=== PATIENT | male | born 1965 | race Caucasian/White ===

== ENCOUNTER 2017-09-20 08:51 | Day surgery (SDC) | payer BC, MEDICAID ==
[2017-09-17 13:21] VITALS: BMI 28.1
[~2017-09-20 08:51] MED LIST: LACTATED RINGERS 1,000 ML IV SCH
[2017-09-20 09:44] VITALS: TEMP 98.2
[2017-09-20 09:59] LABS: Glucose,Whole Blood 98 mg/dL (75-99)
[2017-09-20] MEDS ORDERED: LIDOCAINE 1% INJ 10MG/ML (20 ML MDV) ONE (10:14)
[2017-09-20] MEDS ORDERED: PROPOFOL 10 MG/ML 20 ML VIAL IV ONE (10:14)
[2017-09-20 10:41] VITALS: RESP 16
--- NOTE | 2017-09-20 10:48 | P.PCN ---
Date of Procedure: 09/20/17 Procedure(s) Performed: Procedure: Total colonoscopy. Preoperative diagnosis: Screening for neoplasia. Postoperative diagnosis: Mild sigmoid diverticulosis, otherwise, exam reveals no evidence of diverticulitis, polyps or cancer. Preparation: HalfLytely prep. Sedation: Was provided by anesthesia. Brief clinical history: The patient is a 51-year-old male who is scheduled for this evaluation for screening for neoplasia, patient being his risk factor. No family history of colon cancer. At this time, he has no abdominal complaints, bleeding or anemia. Procedure: With the patient on his left lateral decubitus position and after informed consent and adequate sedation, the perianal area was inspected and it did not show any fissures or fistulas. There were no masses felt on digital rectal examination. The Olympus CFQ 160L video colonoscope was then inserted in the rectum in the usual fashion and advanced to the cecum. The mucosa appeared healthy. There were no obvious polyps or tumors seen. There was mild sigmoid diverticulosis noted with no evidence of acute diverticulitis or strictures. I retroflexed the endoscope in the rectum before the endoscope was withdrawn. The patient tolerated the procedure well. Plan: The patient was reassured. He will follow up with you as planned and I recommended repeat exam in 10 years.
[2017-09-20 10:59] VITALS: BP 121/72; PULSE 60
== END 2017-09-20 11:11 | disposition home or self-care (01) ==
LOC: ORWHC2ENDO 08:51
DX: Z12.11 Encounter for screening for malignant neoplasm of colon (principal); K57.30 Diverticulosis of large intestine without perforation or abscess without bleeding; Z79.899 Other long term (current) drug therapy
CPT/HCPCS: J2001; J2704; G0121

== ENCOUNTER → 2018-06-11 | Outpatient (CLI) | payer MEDICAID ==
--- NOTE | 2018-06-11 08:32 | MR ---
EXAMINATION TYPE: MR knee LT wo con DATE OF EXAM: 06/11/2018 8:14 AM COMPARISON: NONE HISTORY: L knee pain TECHNIQUE: Multiplanar, multiecho imaging of the left knee is performed without IV contrast. FINDINGS: There is only a small amount of joint fluid. 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 There is no other significant chondromalacia. There is a tiny radial tear in the mid body of the medial meniscus. Menisci are otherwise intact. Both the anterior and posterior cruciate ligaments are intact. Both the medial and lateral collateral ligament complexes are intact. The iliotibial band inserts nor cali upon Gerdy's tubercle. The popliteus muscle and tendon are intact. Both the quadriceps and patellar tendons are normal. There is no significant swelling in the Hoffa fa t space. IMPRESSION: 1. TINY RADIAL TEAR INVOLVING THE MID BODY OF THE MEDIAL MENISCUS. 2. CHONDROMALACIA DESCRIBED.
== END ==
LOC: RADMRIMAIN 07:44
PROVIDERS: ATTEND Orthopaedic Surgery
DX: M94.262 Chondromalacia, left knee (principal)

== ENCOUNTER 2019-04-09 18:43 | Emergency (ER) | payer MEDICAID ==
[2019-04-09] MEDS ORDERED: KETOROLAC 30 MG/ML 1 ML VIAL IVP STA (19:05)
[2019-04-09] MEDS ORDERED: SODIUM CHLORIDE 0.9% 1,000 ML IV STA (19:05)
--- NOTE | 2019-04-09 19:09 | ED ---
General Adult HPI - General Chief complaint: Abdominal Pain Stated complaint: Abd pain Time Seen by Provider: 04/09/19 18:47 Source: patient, RN notes reviewed Mode of arrival: ambulatory Limitations: no limitations - History of Present Illness Initial comments: 53-year-old male with a past medical history of diverticulitis presents to the emergency department for a chief complaint of abdominal pain. Patient states this started 2 nights ago on Wednesday evening. States it is in the suprapubic and left lower quadrant areas. States the pain as a 4 or 5 out of 10. States walking exacerbates his pain. Denies nausea vomiting or diarrhea. Does state he may be a little more constipated than normal. States he felt like he had a fever last night but did not check his temperature. Patient does have a history of diverticulitis but states that usually his diverticulitis is worse.Patient has no other complaints at this time including shortness of breath, chest pain, nausea or vomiting, headache, or visual changes. - Related Data Home Medications Medication Instructions Recorded Confirmed Sildenafil Citrate [Sildenafil] 20 mg PO DAILY PRN 09/17/17 09/20/17 Previous Rx's Medication Instructions Recorded Ciprofloxacin HCl [Cipro] 500 mg PO Q12H 10 Days #20 tab 04/09/19 metroNIDAZOLE [Flagyl] 500 mg PO TID #30 tab 04/09/19 Allergies Allergy/AdvReac Type Severity Reaction Status Date / Time No Known Allergies Allergy Verified 04/09/19 18:45 Review of Systems ROS Statement: Those systems with pertinent positive or pertinent negative responses have been documented in the HPI. ROS Other: All systems not noted in ROS Statement are negative. Past Medical History Past Medical History: No Reported History Additional Past Medical History / Comment(s): steroid injection Aug 2017 History of Any Multi-Drug Resistant Organisms: MRSA Date of last positivie culture/infection: 04/09/14 MDRO Source:: Left Leg Past Surgical History: Orthopedic Surgery Additional Past Surgical History / Comment(s): knee procedure,wisdom teeth Past Anesthesia/Blood Transfusion Reactions: No Reported Reaction Past Psychological History: No Psychological Hx Reported Smoking Status: Never smoker Past Alcohol Use History: None Reported Past Drug Use History: None Reported - Past Family History Father Family Medical History: No Reported History General Exam Limitations: no limitations General appearance: alert, in no apparent distress Head exam: Present: atraumatic, normocephalic, normal inspection Eye exam: Present: normal appearance, PERRL, EOMI. Absent: scleral icterus, conjunctival injection, periorbital swelling ENT exam: Present: normal exam, mucous membranes moist Neck exam: Present: normal inspection, full ROM. Absent: tenderness, me ningismus, lymphadenopathy Respiratory exam: Present: normal lung sounds bilaterally. Absent: respiratory distress, wheezes, rales, rhonchi, stridor Cardiovascular Exam: Present: regular rate, normal rhythm, normal heart sounds. Absent: systolic murmur, diastolic murmur, rubs, gallop, clicks GI/Abdominal exam: Present: soft, tenderness (Tenderness to the suprapubic and lower left quadrant with mild guarding present.), guarding, normal bowel sounds. Absent: distended, rebound, rigid Neurological exam: Present: alert Psychiatric exam: Present: normal affect, normal mood Course Vital Signs 04/09/19 18:45 Temperature 99.5 F Pulse Rate 95 Respiratory 18 Rate Blood Pressure 148/87 O2 Sat by Pulse 97 Oximetry Medical Decision Making - Medical Decision Making 43-year-old male presents to the emergency department for left lower quadrant pain 2 days. History of diverticulitis. Patient felt hot at home but did not check his temperature. Patient is afebrile here. Vitals are stable. On exam he does have left lower quadrant tenderness with mild guarding. No rebound tenderness. CBC CMP unremarkable. White blood cell count is within normal l imits. CT abdomen and pelvis shows a new fairly moderate uncomplicated acute diverticulitis in the proximal sigmoid colon left upper to mid pelvis. Patient was given a dose of oral antibiotics here in the emergency department. Patient was prescribed Robaxin outpatient. He will follow up with primary care in 1-2 days. He will follow up with his GI doctor as well. He will return if he has any worsening symptoms. - Lab Data Result diagrams: 04/09/19 19:04/09/19 19: Lab Results 04/09/19 04/09/19 04/09/19 Range/Units 19: 19: 19: WBC 8.5 (3.8-10.6) k/uL RBC 4.37 (4.30-5.90) m/uL Hgb 14.5 (13.0-17.5) gm/dL Hct 40.2 (39.0-53.0) % MCV 91.9 (80.0-100.0) fL MCH 33.1 (25.0-35.0) pg MCHC 36.1 (31.0-37.0) g/dL RDW 12.4 (11.5-15.5) % Plt Count 169 (150-450) k/uL Neutrophils % 76 % Lymphocytes % 13 % Monocytes % 6 % Eosinophils % 2 % Basophils % 1 % Neutrophils # 6.4 (1.3-7.7) k/uL Lymphocytes # 1.1 (1.0-4.8) k/uL Monocytes # 0.5 (0-1.0) k/uL Eosinophils # 0.2 (0-0.7) k/uL Basophils # 0.1 (0-0.2) k/uL Sodium 139 (137-145) mmol/L Potassium 3.9 (3.5-5.1) mmol/L Chloride 105 (98-107) mmol/L Carbon Dioxide 25 (22-30) mmol/L Anion Gap 9 mmol/L BUN 18 (9-20) mg/dL Creatinine 0.89 (0.66-1.25) mg/dL Est GFR (CKD-EPI)AfAm >90 (>60 ml/min/1.73 sqM) Est GFR (CKD-EPI)NonAf >90 (>60 ml/min/1.73 sqM) Glucose 116 H (74-99) mg/dL Plasma Lactic Acid Juanjo 0.8 (0.7-2.0) mmol/L Calcium 9.2 (8.4-10.2) mg/dL Total Bilirubin 0.5 (0.2-1.3) mg/dL AST 28 (17-59) U/L ALT 27 (21-72) U/L Alkaline Phosphatase 94 (38-126) U/L Total Protein 7.1 (6.3-8.2) g/dL Albumin 4.1 (3.5-5.0) g/dL Amylase 44 (30-110) U/L Lipase 29 (23-300) U/L Disposition Clinical Impression: Diverticulitis Disposition: HOME SELF-CARE Condition: Good Instructions (If sedation given, give patient instructions): Diverticulitis (ED), Diverticulitis Diet (ED) Additional Instructions: Please follow diverticulitis male plan is given 2. Please take antibiotics as directed. Follow up with GI in 1-2 days. Return to the emergency department give any worsening symptoms. Prescriptions: Ciprofloxacin HCl [Cipro] 500 mg PO Q12H 10 Days #20 tab metroNIDAZOLE [Flagyl] 500 mg PO TID #30 tab Is patient prescribed a controlled substance at d/c from ED?: No Referrals: Luis Jackson MD [Primary Care Provider] - 1-2 days Shade Preciado MD [STAFF PHYSICIAN] - 1-2 days Time of Disposition: 20:25
[2019-04-09 19:33] LABS: Basophils # (A) 0.1 k/uL (0-0.2); Basophils % (A) 1 %; Eosinophils # (A) 0.2 k/uL (0-0.7); Eosinophils % (A) 2 %; HCT 40.2 % (39.0-53.0); HGB 14.5 gm/dL (13.0-17.5); Lymphocytes # (A) 1.1 k/uL (1.0-4.8); Lymphocytes % (A) 13 %; MCH 33.1 pg (25.0-35.0); MCHC 36.1 g/dL (31.0-37.0); MCV 91.9 fL (80.0-100.0); Mean Platelet Volume 6.8; Monocytes # (A) 0.5 k/uL (0-1.0); Monocytes % (A) 6 %; Neutrophils # (A) 6.4 k/uL (1.3-7.7); Neutrophils % (A) 76 %; Platelet Count 169 k/uL (150-450); RBC 4.37 m/uL (4.30-5.90); RDW 12.4 % (11.5-15.5); WBC 8.5 k/uL (3.8-10.6)
[2019-04-09 19:48] LABS: ALT 27 U/L (21-72); AST 28 U/L (17-59); African American GFR (CKD) >90 (>60 ml/min/1.73 sqM); Albumin 4.1 g/dL (3.5-5.0); Alkaline Phosphatase 94 U/L (38-126); Amylase 44 U/L (30-110); Anion Gap 9 mmol/L; Blood Urea Nitrogen 18 mg/dL (9-20); Calcium 9.2 mg/dL (8.4-10.2); Carbon Dioxide 25 mmol/L (22-30); Chloride 105 mmol/L (98-107); Glucose 116 mg/dL (74-99); Potassium 3.9 mmol/L (3.5-5.1); Sodium 139 mmol/L (137-145); Total Bilirubin 0.5 mg/dL (0.2-1.3); Total Protein 7.1 g/dL (6.3-8.2)
--- NOTE | 2019-04-09 19:49 | CT ---
EXAMINATION TYPE: CT abdomen pelvis w con DATE OF EXAM: 04/09/2019 COMPARISON: CT abdomen and pelvis June 23, 2015 HISTORY: LLQ pain X [address] DLP: 1081.3 mGycm, Automated Exposure Control for Dose Reduction was Utilized. CONTRAST: CT scan of the abdomen and pelvis is performed with oral and with IV Contrast, patient injected with 100 mL of Isovue 300. FINDINGS: LUNG BASES: No significant abnormality is appreciated. LIVER/GB: Numerous subcentimeter low dense lesions throughout the liver are too small to further laxmi acterize for presumed benign. PANCREAS: Some mild to moderate fat replaced atrophy of pancreas is redemonstrated most prominent at level of pancreatic head. SPLEEN: No significant abnormality is seen. ADRENALS: No significant abnormality is seen. KIDNEYS: No significant abnormality is seen. BOWEL: Evaluation of bowel slightly suboptimal secondary to lack of enteric contrast. No suspicious s mall or large bowel dilatation. Mild wall thickening involving the left colon. More mild to moderate wall thickening involving the sigmoid colon where there are 2 prominent diverticula and moderate arpita cent ill-defined fluid and fat stranding left upper pelvis axial image 68 consistent with acute diver ticulitis. No adjacent well-formed fluid collection. No free air is seen. PROSTATE/SEMINAL VESICLES: No gross abnormality seen. LYMPH NODES: No greater than 1cm abdominal or pelvic lymph nodes are appreciated. OSSEOUS STRUCTURES: Moderate disc space narrowing lumbosacral junction. OTHER: Small fat-containing left inguinal hernia . IMPRESSION: New fairly moderate uncomplicated acute diverticulitis proximal sigmoid colon left upper to mid pelvis.
[2019-04-09] MEDS ORDERED: LEVOFLOXACIN 750 MG TAB PO STA (20:01)
[2019-04-09] MEDS ORDERED: metroNIDAZOLE 500 MG TAB PO STA (20:01)
[2019-04-09 20:43] VITALS: BP 139/82; PULSE 91; RESP 16; TEMP 98.8
== END 2019-04-09 20:43 | disposition home or self-care (01) ==
LOC: EC 18:43
DX: K57.32 Diverticulitis of large intestine without perforation or abscess without bleeding (principal); Z86.14 Personal history of Methicillin resistant Staphylococcus aureus infection
CPT/HCPCS: 99284; 96374; 96361; 36415; 80053; 82150; 83605; 83690; 85025; 74177; J1885; Q9967

== ENCOUNTER 2019-09-15 18:30 | Emergency (ER) | payer MEDICAID ==
[2019-09-15 18:37] VITALS: TEMP 97.9
--- NOTE | 2019-09-15 19:07 | ED ---
General Adult HPI - General Chief complaint: Recheck/Abnormal Lab/Rx Stated complaint: spitting up blood Time Seen by Provider: 09/15/19 18:48 Source: patient, RN notes reviewed, old records reviewed Mode of arrival: ambulatory Limitations: no limitations - History of Present Illness Initial comments: 53-year-old male patient past history significant for diverticulitis presents to ED for chief complaint of spitting up blood. Patient reports that for the last 2 weeks he has been experiencing daily fevers and chills. He reports that he was having some mild upper respiratory symptoms including dry cough. This has since resolved. He also reports that approximately 4 days ago he had right parasternal chest pain with coughing which is also resolved. He was seen by his primary care provider on Wednesday where he had laboratory investigations drawn and today was put on ciprofloxacin and Flagyl for possible diverticulitis. Patient denies any abdominal pain over does report that he has been having some bloating. States that 3 times today he tasted blood and spit out a small amount of blood. This was not while coughing. Denies any prior liver disease or any coagulopathies. Denies any recent travel, history of DVT, lower extremity pain, active cancer, exogenous hormones. Denies any rashes. Systemic: Pt denies fatigue, fever/chills, rash. Pt denies weakness, night sweats, weight loss. Neuro: Pt denies headache, visual disturbances, syncope or pre-syncope. HEENT: Pt denies ocular discharge or irritation, otalgia, rhinorrhea, pharyngitis or notable lymphadenopathy. Cardiopulmonary: Pt denies SOB, heart palpitations, dyspnea on exertion. Abdominal/GI: Pt denies abdominal pain, n/v/d. : Pt denies dysuria, burning w/ urination, frequency/urgency. Denies new onset urinary or bowel incontinence. MSK: Pt denies myalgia, loss of strength or function in extremities. Neuro: Pt denies new onset weakness, paresthesias. - Related Data Home Medications Medication Instructions Recorded Confirmed Sildenafil Citrate [Sildenafil] 20 mg PO DAILY PRN 09/17/17 09/20/17 Previous Rx's Medication Instructions Recorded Ciprofloxacin HCl [Cipro] 500 mg PO Q12H 10 Days #20 tab 04/09/19 metroNIDAZOLE [Flagyl] 500 mg PO TID #30 tab 04/09/19 Allergies Allergy/AdvReac Type Severity Reaction Status Date / Time No Known Allergies Allergy Verified 09/15/19 18:34 Review of Systems ROS Statement: Those systems with pertinent positive or pertinent negative responses have been documented in the HPI. ROS Other: All systems not noted in ROS Statement are negative. Past Medical History Past Medical History: No Reported History Additional Past Medical History / Comment(s): steroid injection Aug 2017 History of Any Multi-Drug Resistant Organisms: MRSA Date of last positivie culture/infection: 04/09/14 MDRO Source:: Left Leg Past Surgical History: Orthopedic Surgery Additional Past Surgical History / Comment(s): knee procedure,wisdom teeth Past Anesthesia/Blood Transfusion Reactions: No Reported Reaction Past Psychological History: No Psychological Hx Reported Smoking Status: Never smoker Past Alcohol Use History: None Reported Past Drug Use History: None Reported - Past Family History Father Family Medical History: No Reported History General Exam - General Exam Comments Initial Comments: Constitutional: NAD, AOX3, Pt has pleasant affect. HEENT: NC/AT, trachea midline, neck supple, no lymphadenopathy. Posterior pharynx non erythematous, without exudates. External ears appear normal, without discharge. Mucous membranes moist. Eyes PERRLA, EOM intact. There is no scleral icterus. No pallor noted. Dental exam unremarkable, no active bleeding. Cardiopulmonary: RRR, no murmurs, rubs or gallops, no JVD noted. Lungs CTAB in anterior and posterior villar. No peripheral edema. Abdominal exam: Abdomen soft and non-distended. Abdomen non-tender to palpation in all 4 quadrants. Bowel sounds active in LLQ. No hepatosplenomegaly. No ecchymosis Neuro: CN II-XII grossly intact. No nuchal rigidity. No raccon eyes, no charles sign, no hemotympanum. No cervical spinal tenderness. MSK: No posterior calf tenderness bilaterally, homans sign negative bilaterally. Posterior tibialis and radial pulse +2 bilaterally. Sensation intact in upper and lower extremities. Full active ROM in upper and lower extremities, 5/5 stregnth. Limitations: no limitations Course Vital Signs 09/15/19 09/15/19 18:34 20:22 Temperature 97.9 F Pulse Rate 90 61 Respiratory 18 19 Rate Blood Pressure 150/95 125/87 O2 Sat by Pulse 97 99 Oximetry Medical Decision Making - Medical Decision Making 53-year-old male patient past history significant for diverticulitis presents to ED for chief complaint of spitting up blood. Patient reports that for the last 2 weeks he has been experiencing daily fevers and chills. He reports that he was having some mild upper respiratory symptoms including dry cough. This has since resolved. He also reports that approximately 4 days ago he had right parasternal chest pain with coughing which is also resolved. He was seen by his primary care provider on Wednesday where he had laboratory investigations drawn and today was put on ciprofloxacin and Flagyl for possible diverticulitis. Patient denies any abdominal pain over does report that he has been having some bloating. States that 3 times today he tasted blood and spit out a small amount of blood. This was not while coughing. Denies any prior liver disease or any coagulopathies. Denies any recent travel, history of DVT, lower extremity pain, active cancer, exogenous hormones. Denies any rashes. Patient will signs stable, afebrile. Physical exam is nonspecific pathology. Abdomen soft, nontender. Laboratory investigations are significant for mildly elevated d- dimer. Troponin negative. Influenza negative. UA negative. EKG is nonischemic. Chest x-ray KUB CTAs negative. Patient will be discharged for follow-up with primary care provider tomorrow or return to ER if condition worsens. Discussed with Dr. Saucedo. - Lab Data Result diagrams: 09/15/19 19:07 09/15/19 19:07 Lab Results 09/15/19 09/15/19 09/15/19 Range/Units 19:07 19:07 19:07 WBC 5.5 (3.8-10.6) k/uL RBC 4.58 (4.30-5.90) m/uL Hgb 14.5 (13.0-17.5) gm/dL Hct 42.3 (39.0-53.0) % MCV 92.3 (80.0-100.0) fL MCH 31.6 (25.0-35.0) pg MCHC 34.3 (31.0-37.0) g/dL RDW 12.2 (11.5-15.5) % Plt Count 201 (150-450) k/uL Neutrophils % 67 % Lymphocytes % 23 % Monocytes % 6 % Eosinophils % 2 % Basophils % 1 % Neutrophils # 3.7 (1.3-7.7) k/uL Lymphocytes # 1.3 (1.0-4.8) k/uL Monocytes # 0.3 (0-1.0) k/uL Eosinophils # 0.1 (0-0.7) k/uL Basophils # 0.0 (0-0.2) k/uL PT (9.0-12.0) sec INR (<1.2) APTT (22.0-30.0) sec D-Dimer (<0.60) mg/L FEU Sodium 139 (137-145) mmol/L Potassium 4.1 (3.5-5.1) mmol/L Chloride 104 (98-107) mmol/L Carbon Dioxide 25 (22-30) mmol/L Anion Gap 10 mmol/L BUN 25 H (9-20) mg/dL Creatinine 0.98 (0.66-1.25) mg/dL Est GFR (CKD-EPI)AfAm >90 (>60 ml/min/1.73 sqM) Est GFR (CKD-EPI)NonAf 88 (>60 ml/min/1.73 sqM) Glucose 108 H (74-99) mg/dL Plasma Lactic Acid Juanjo (0.7-2.0) mmol/L Calcium 9.1 (8.4-10.2) mg/dL Total Bilirubin 0.4 (0.2-1.3) mg/dL AST 18 (17-59) U/L ALT 16 (4-49) U/L Alkaline Phosphatase 83 (38-126) U/L Troponin I <0.012 (0.000-0.034) ng/mL Total Protein 7.1 (6.3-8.2) g/dL Albumin 4.0 (3.5-5.0) g/dL Lipase 42 (23-300) U/L Urine Color Urine Appearance (Clear) Urine pH (5.0-8.0) Ur Specific Ignacio (1.001-1.035) Urine Protein (Negative) Urine Glucose (UA) (Negative) Urine Ketones (Negative) Urine Blood (Negative) Urine Nitrite (Negative) Urine Bilirubin (Negative) Urine Urobilinogen (<2.0) mg/dL Ur Leukocyte Esterase (Negative) Influenza Type A RNA (Not Detectd) Influenza Type B (PCR) (Not Detectd) 09/15/19 09/15/19 09/15/19 Range/Units 19:07 19:07 19:07 WBC (3.8-10.6) k/uL RBC (4.30-5.90) m/uL Hgb (13.0-17.5) gm/dL Hct (39.0-53.0) % MCV (80.0-100.0) fL MCH (25.0-35.0) pg MCHC (31.0-37.0) g/dL RDW (11.5-15.5) % Plt Count (150-450) k/uL Neutrophils % % Lymphocytes % % Monocytes % % Eosinophils % % Basophils % % Neutrophils # (1.3-7.7) k/uL Lymphocytes # (1.0-4.8) k/uL Monocytes # (0-1.0) k/uL Eosinophils # (0-0.7) k/uL Basophils # (0-0.2) k/uL PT 10.3 (9.0-12.0) sec INR 1.0 (<1.2) APTT 22.1 (22.0-30.0) sec D-Dimer (<0.60) mg/L FEU Sodium (137-145) mmol/L Potassium (3.5-5.1) mmol/L Chloride (98-107) mmol/L Carbon Dioxide (22-30) mmol/L Anion Gap mmol/L BUN (9-20) mg/dL Creatinine (0.66-1.25) mg/dL Est GFR (CKD-EPI)AfAm (>60 ml/min/1.73 sqM) Est GFR (CKD-EPI)NonAf (>60 ml/min/1.73 sqM) Glucose (74-99) mg/dL Plasma Lactic Acid Juanjo 1.1 (0.7-2.0) mmol/L Calcium (8.4-10.2) mg/dL Total Bilirubin (0.2-1.3) mg/dL AST (17-59) U/L ALT (4-49) U/L Alkaline Phosphatase (38-126) U/L Troponin I (0.000-0.034) ng/mL Total Protein (6.3-8.2) g/dL Albumin (3.5-5.0) g/dL Lipase (23-300) U/L Urine Color Urine Appearance (Clear) Urine pH (5.0-8.0) Ur Specific Ignacio (1.001-1.035) Urine Protein (Negative) Urine Glucose (UA) (Negative) Urine Ketones (Negative) Urine Blood (Negative) Urine Nitrite (Negative) Urine Bilirubin (Negative) Urine Urobilinogen (<2.0) mg/dL Ur Leukocyte Esterase (Negative) Influenza Type A RNA Not Detected (Not Detectd) Influenza Type B (PCR) Not Detected (Not Detectd) 09/15/19 09/15/19 Range/Units 19:07 21:00 WBC (3.8-10.6) k/uL RBC (4.30-5.90) m/uL Hgb (13.0-17.5) gm/dL Hct (39.0-53.0) % MCV (80.0-100.0) fL MCH (25.0-35.0) pg MCHC (31.0-37.0) g/dL RDW (11.5-15.5) % Plt Count (150-450) k/uL Neutrophils % % Lymphocytes % % Monocytes % % Eosinophils % % Basophils % % Neutrophils # (1.3-7.7) k/uL Lymphocytes # (1.0-4.8) k/uL Monocytes # (0-1.0) k/uL Eosinophils # (0-0.7) k/uL Basophils # (0-0.2) k/uL PT (9.0-12.0) sec INR (<1.2) APTT (22.0-30.0) sec D-Dimer 0.74 H (<0.60) mg/L FEU Sodium (137-145) mmol/L Potassium (3.5-5.1) mmol/L Chloride (98-107) mmol/L Carbon Dioxide (22-30) mmol/L Anion Gap mmol/L BUN (9-20) mg/dL Creatinine (0.66-1.25) mg/dL Est GFR (CKD-EPI)AfAm (>60 ml/min/1.73 sqM) Est GFR (CKD-EPI)NonAf (>60 ml/min/1.73 sqM) Glucose (74-99) mg/dL Plasma Lactic Acid Juanjo (0.7-2.0) mmol/L Calcium (8.4-10.2) mg/dL Total Bilirubin (0.2-1.3) mg/dL AST (17-59) U/L ALT (4-49) U/L Alkaline Phosphatase (38-126) U/L Troponin I (0.000-0.034) ng/mL Total Protein (6.3-8.2) g/dL Albumin (3.5-5.0) g/dL Lipase (23-300) U/L Urine Color Yellow Urine Appearance Clear (Clear) Urine pH 5.5 (5.0-8.0) Ur Specific Ignacio 1.027 (1.001-1.035) Urine Protein Negative (Negative) Urine Glucose (UA) Negative (Negative) Urine Ketones Negative (Negative) Urine Blood Negative (Negative) Urine Nitrite Negative (Negative) Urine Bilirubin Negative (Negative) Urine Urobilinogen <2.0 (<2.0) mg/dL Ur Leukocyte Esterase Negative (Negative) Influenza Type A RNA (Not Detectd) Influenza Type B (PCR) (Not Detectd) - EKG Data -: EKG Interpreted by Me EKG Comments: Integrate 73, SD interval 172, QRS 16, QT/QTC 394/434. Normal sinus rhythm. Voltage criteria for left ventricular hypertrophy. No concern for acute ischemia. Disposition Clinical Impression: Bleeding from mouth, Cough Disposition: HOME SELF-CARE Condition: Stable Instructions (If sedation given, give patient instructions): Acute Cough (ED) Additional Instructions: Follow-up with primary care provider tomorrow. Return to ER if condition worsens in any way. Is patient prescribed a controlled substance at d/c from ED?: No Referrals: Luis Jackson MD [Primary Care Provider] - 1-2 days
[2019-09-15 19:29] LABS: Basophils % (A) 1 %; Eosinophils # (A) 0.1 k/uL (0-0.7); Eosinophils % (A) 2 %; HCT 42.3 % (39.0-53.0); HGB 14.5 gm/dL (13.0-17.5); Lymphocytes # (A) 1.3 k/uL (1.0-4.8); Lymphocytes % (A) 23 %; MCH 31.6 pg (25.0-35.0); MCHC 34.3 g/dL (31.0-37.0); MCV 92.3 fL (80.0-100.0); Mean Platelet Volume 7.2; Monocytes # (A) 0.3 k/uL (0-1.0); Monocytes % (A) 6 %; Neutrophils # (A) 3.7 k/uL (1.3-7.7); Neutrophils % (A) 67 %; Platelet Count 201 k/uL (150-450); RBC 4.58 m/uL (4.30-5.90); RDW 12.2 % (11.5-15.5); WBC 5.5 k/uL (3.8-10.6)
[2019-09-15 19:38] LABS: Partial Thromboplastin Time 22.1 sec (22.0-30.0); Prothrombin Time 10.3 sec (9.0-12.0)
[2019-09-15 19:43] LABS: ALT 16 U/L (4-49); AST 18 U/L (17-59); African American GFR (CKD) >90 (>60 ml/min/1.73 sqM); Alkaline Phosphatase 83 U/L (38-126); Anion Gap 10 mmol/L; Blood Urea Nitrogen 25 mg/dL (9-20); Calcium 9.1 mg/dL (8.4-10.2); Carbon Dioxide 25 mmol/L (22-30); Chloride 104 mmol/L (98-107); Glucose 108 mg/dL (74-99); Non-African American GFR(CKD) 88 (>60 ml/min/1.73 sqM); Potassium 4.1 mmol/L (3.5-5.1); Sodium 139 mmol/L (137-145); Total Bilirubin 0.4 mg/dL (0.2-1.3); Total Protein 7.1 g/dL (6.3-8.2)
--- NOTE | 2019-09-15 19:59 | XR ---
EXAMINATION TYPE: XR chest 2V DATE OF EXAM: 09/15/2019 COMPARISON: 06/23/2015 HISTORY: Chest pain TECHNIQUE: FINDINGS: Heart and mediastinum are normal. Lungs are clear. Diaphragm is normal. Bony thorax appears normal. IMPRESSION: Normal chest. No change.
--- NOTE | 2019-09-15 20:01 | XR ---
EXAMINATION TYPE: XR abdomen 2V DATE OF EXAM: 09/15/2019 COMPARISON: 06/23/2015 HISTORY: Pain TECHNIQUE: Supine and upright views FINDINGS: There is no sign of intestinal obstruction or pneumoperitoneum. Fecal pattern is normal. Th ere are no pathologic calcifications over the kidneys. There is no evidence of a mass. IMPRESSION: Nonacute abdomen. No change.
[2019-09-15 20:23] VITALS: BP 125/87; PULSE 61
[2019-09-15] MEDS ORDERED: SODIUM CHLORIDE 0.9% 1,000 ML IV ONE (20:29)
[2019-09-15 21:10] LABS: Appearance,Urine Clear (Clear); Bilirubin,Urine Negative (Negative); Blood,Urine Negative (Negative); Color,Urine Yellow; Glucose,Urine (UA) Negative (Negative); Ketones,Urine Negative (Negative); Leukocyte Esterase,Urine Negative (Negative); Nitrite,Urine Negative (Negative); PH, Urine 5.5 (5.0-8.0); Protein,Urine Negative (Negative); Specific Gravity,Urine 1.027 (1.001-1.035); Urobilinogen,Urine <2.0 mg/dL (<2.0)
--- NOTE | 2019-09-15 21:26 | CT ---
EXAMINATION TYPE: CT chest angio for PE DATE OF EXAM: 09/15/2019 COMPARISON: None HISTORY: Hemoptysis, elevated d-dimer CT DLP: 493.4 mGycm Automated exposure control for dose reduction was used. CONTRAST: Performed with IV Contrast, patient injected with 80 mL of Isovue 370. There are 3-D post processed images. The lungs are clear of infiltrate. There is no evidence of a pulmonary mass. There is no pleural effu eliz. Heart appears normal. There is no mediastinal adenopathy. There are few paratracheal lymph node s that measure up to 1 cm. There are no hilar masses. There is no evidence of filling defect in the p ulmonary arteries. Thoracic aorta appears normal. Thoracic spine is intact. I see no bony destructive process. IMPRESSION: Normal exam. No evidence of pulmonary embolism.
[2019-09-15 22:17] VITALS: RESP 17
== END 2019-09-15 22:17 | disposition home or self-care (01) ==
LOC: EC 18:30
DX: R04.1 Hemorrhage from throat (principal); R05 Cough; R79.1 Abnormal coagulation profile; R50.9 Fever, unspecified; R14.0 Abdominal distension (gaseous); Z86.14 Personal history of Methicillin resistant Staphylococcus aureus infection; Z87.19 Personal history of other diseases of the digestive system
CPT/HCPCS: 36415; 93005; 85379; 80053; 83605; 83690; 84484; 85025; 85610; 85730; 81003; 87502; 71046; 74019; 71275; 99284; 96360; Q9967

== ENCOUNTER → 2019-09-23 | Outpatient (CLI) | payer MEDICAID ==
--- NOTE | 2019-09-24 14:13 | CT ---
EXAMINATION TYPE: CT abdomen pelvis w con DATE OF EXAM: 09/23/2019 COMPARISON: 04/09/2019 INDICATION: diverticulitis, fever on and off for a month and a half DLP: 1003.7 mGycm, Automated exposure control for dose reduction was used. CONTRAST: 100 mL of Isovue 300. Study performed with Oral Contrast TECHNIQUE: Axial images were obtained from above the diaphragm to the pubic rami in the axial plane a t 5 mm thick sections. Reconstructed images are reviewed on the computer in the coronal plane. FINDINGS: Limited CT sections are obtained the lung bases. The lung bases are clear. CT ABDOMEN: Liver: There are few scattered small hypodensities within the liver too small to classify. These are present previous and likely represent small hepatic cysts. Spleen: Normal Pancreas: Fatty infiltration of the pancreas is evident. Adrenal glands: The adrenal glands are normal. Gallbladder: Normal Kidneys: No masses are evident. No hydronephrosis is present. No cysts are present. Delayed images were obtained through the kidneys, which remain unremarkable. Aorta: Normal Inferior vena cava: Normal. CT PELVIS: There is some thickening of the proximal sigmoid colon. A few diverticuli are present. Correlate for colitis or neoplasm. Mild diverticulitis could be present. Inflammatory changes adjacent however are not evident. Apple core lesion is not excluded. Series 3 image 70. Additional workup is recommended. There are loops of bowel which are incompletely distended or lack oral contrast limiting their evalua tion. Appendix: Normal as visualized. Urinary bladder: Normal. Genitourinary structures: Prostate is slightly prominent. Osseous structures: No suspicious lytic or sclerotic lesions. IMPRESSIONS: 1. There may be some thickening of the proximal sigmoid colon. Colitis or neoplasm is favored over a cute diverticulitis. Additional workup is recommended.
== END | disposition home or self-care (01) ==
LOC: RADCTMAIN 08:00
PROVIDERS: ATTEND Family Medicine
DX: K57.92 Diverticulitis of intestine, part unspecified, without perforation or abscess without bleeding (principal)
CPT/HCPCS: 74177; Q9967

== ENCOUNTER → 2019-09-27 | Outpatient (CLI) | payer MEDICAID ==
--- NOTE | 2019-09-27 21:46 | MR ---
EXAMINATION TYPE: MR knee LT wo con DATE OF EXAM: 09/27/2019 COMPARISON: Prior MRI left knee June 11, 2018 HISTORY: Pain in left knee, primary osteoarthritis, and internal derangement all per order. TECHNIQUE: Multiplanar, multisequence images of the knee is performed without IV contrast. FINDINGS: MEDIAL MENISCUS: Prior visualized radial tear mid body medial meniscus sagittal image 25 not as well- seen on current study. There is is suspected interval resection of this segment with decreased size t o the central meniscus, remnant posterior horn decreased in size with curvilinear signal sagittal navin ge 25 could reflect postsurgical change versus new tear. LATERAL MENISCUS: Anterior and posterior horns are intact without tear. CRUCIATE LIGAMENTS: The anterior and posterior cruciate ligaments are intact and unremarkable. COLLATERAL LIGAMENTS: The medial collateral ligament and lateral collateral ligament complex are inta ct and unremarkable. EXTENSOR MECHANISM: Visualized quadriceps and patellar tendons are intact. EFFUSION: No significant suprapatellar joint effusion. POPLITEAL CYST: No popliteal/jeronimo cyst. TRICOMPARTMENT SPACES: Medial tibiofemoral compartment shows increased narrowing and cartilaginous lo ss from most recent study. Stable mild to moderate narrowing patellofemoral compartment. No significa nt spurring is present. CARTILAGE: Stable mild chondromalacia patella with some thinning of articular cartilage along the pos terior patellar pole. No full-thickness defects seen. More prominent cartilaginous loss medial tibial femoral compartment is seen on current study. BONE MARROW SIGNAL: There are no areas of heterogeneous diminished T1 signal centered medial tibiofem oral compartment most prominent along posterior margin with progression from prior MRI. Increased T2 signal is more faint and less prominent. OTHER: No additional significant abnormality is appreciated. IMPRESSION: Interval partial medial meniscectomy changes thought present. New tear through the transportation aide ior horn is suspected. There are increasing moderate to borderline severe degenerative changes in the weightbearing medial tibial femoral compartment with significant progression and cartilaginous loss and new reactive osseous changes from most recent MRI.
== END | disposition home or self-care (01) ==
LOC: RADMRIMAIN 06:03
PROVIDERS: ATTEND Orthopaedic Surgery
DX: M17.12 Unilateral primary osteoarthritis, left knee (principal); R93.6 Abnormal findings on diagnostic imaging of limbs; M23.92 Unspecified internal derangement of left knee; Z98.890 Other specified postprocedural states

== ENCOUNTER → 2019-12-20 | Outpatient (CLI) | payer MEDICAID | END | disposition home or self-care (01) | LOC: LABWHC1 09:25 | PROVIDERS: ATTEND Internal Medicine Gastroenterology | DX: Z11.59 Encounter for screening for other viral diseases (principal) ==

== ENCOUNTER 2019-12-22 09:25 | Day surgery (SDC) | payer MEDICAID ==
[2019-12-21 08:42] VITALS: BMI 27.9
[2019-12-22] MEDS ORDERED: LIDOCAINE 1% (10MG/ML) FOR IV START INTRADERMA ONE (10:00)
[2019-12-22 10:09] VITALS: TEMP 97.6
[2019-12-22] MEDS ORDERED: fentaNYL (PF) 50 MCG/ML 2 ML AMP ONE (10:52)
[2019-12-22] MEDS ORDERED: MIDAZOLAM 2 MG/2 ML VIAL ONE (10:52)
[2019-12-22] MEDS ORDERED: PROPOFOL 10 MG/ML 20 ML VIAL IV ONE (10:52)
--- NOTE | 2019-12-22 11:12 | P.PCN ---
Date of Procedure: 12/22/19 Procedure(s) Performed: BRIEF HISTORY: Patient is a 54-year-old pleasant white male scheduled for an elective colonoscopy as a part of evaluation of intermittent lower abdominal pain and diarrhea for the last 4 weeks' duration. He was treated with possible diverticulitis with antibiotics in October and is doing better. PROCEDURE PERFORMED: Colonoscopy. PREOPERATIVE DIAGNOSIS: Lower abdominal pain and intermittent diarrhea. IV sedation per Anesthesia. PROCEDURE: After informed consent was obtained, the patient, was brought into the endoscopy unit. IV sedation was administered by Anesthesia under continuous monitoring. Digital rectal examination was normal. Initially the Olympus CF-160 flexible video colonoscope was then inserted in the rectum, gradually advanced into the cecum without any difficulty. Careful examination was performed as the scope was gradually being withdrawn. Ileocecal valve and the appendiceal orifice were visualized and appeared normal. Prep was excellent. Mucosa of the cecum, ascending colon, transverse colon, descending colon, sigmoid colon, and rectum appeared normal. Scattered sigmoidal diverticulosis. Retroflexion was performed in the rectum and no lesions were seen. The patient tolerated the procedure well. IMPRESSION: Normal-appearing colon from rectum to cecum with no evidence of colorectal neoplasia . Scattered sigmoid diverticulosis. RECOMMENDATIONS: Findings of this examination were discussed with the patient as well as his family. He was advised to have a repeat screening colonoscopy in 10 years.
[2019-12-22 11:35] VITALS: BP 121/77; PULSE 59; RESP 18
== END 2019-12-22 11:58 | disposition home or self-care (01) ==
LOC: ORWHC2ENDO 09:25
PROVIDERS: ATTEND Internal Medicine Gastroenterology
DX: K57.30 Diverticulosis of large intestine without perforation or abscess without bleeding (principal); K64.9 Unspecified hemorrhoids
CPT/HCPCS: 45378; J2250; J3010; J2704

== ENCOUNTER → 2020-09-24 | Outpatient (CLI) | payer MEDICAID ==
--- NOTE | 2020-09-24 12:56 | CT ---
EXAMINATION TYPE: CT abdomen pelvis wo con DATE OF EXAM: 09/24/2020 COMPARISON: 09/23/2019 HISTORY: 54-year-old male R10.32, LLQ pain CT DLP: 882 mGycm. Automated exposure control for dose reduction was used. TECHNIQUE: Contiguous axial scanning of the abdomen and pelvis without IV contrast. Coronal and sagit lori reconstructions performed. FINDINGS: Heart normal size without pericardial effusion. Lung bases clear without pleural effusion. Innumerable hepatic hypodensities are redemonstrated, possible tiny cysts or small biliary hamartomas . No abnormal gallbladder distention. Otherwise, noncontrast appearance of the adrenal glands, kidneys, atrophic pancreas show no gross ano jamilah. A couple punctate calcified granulomas in the spleen. Inferior splenule. No dilated small bowel, free fluid, or free air. No mesenteric or retroperitoneal lymphadenopathy. Mild stool burden. Sigmoid diverticulosis. Normal appendix. No pericolonic inflammatory change. Stable vague density in the anterior left side of the upper pelvis/left lower quadrant with some calc ification and central fat density suggesting sequela of prior inflammation, unchanged from 09/23/2019. Mild circumferential bladder wall thickening with some submucosal fat deposition. Prostate gland alley ures 4.7 cm wide. No abnormal fluid collection in the pelvis or enlarging pelvic lymphadenopathy. Bones: Osteitis pubis. Mild degenerative change at the hips. Moderate degenerative disc disease L5-S1 . IMPRESSION: 1. Mild circumferential and 2. bladder wall thickening could reflect chronic bladder wall hypertrophy. Correlate to exclude cyst itis. 3. Sigmoid diverticulosis without findings of acute diverticulitis at this time. 4. No nephrolithiasis or hydronephrosis.
== END | disposition home or self-care (01) ==
LOC: RADCTMAIN 12:00
PROVIDERS: ATTEND Nurse Practitioner Adult Health
DX: K57.30 Diverticulosis of large intestine without perforation or abscess without bleeding (principal); N32.89 Other specified disorders of bladder
CPT/HCPCS: 74176

== ENCOUNTER 2020-09-29 11:51 | Emergency (ER) | payer MEDICAID ==
[2020-09-29 12:09] VITALS: PULSE 84; RESP 18; TEMP 98
--- NOTE | 2020-09-29 12:35 | ED ---
Abdominal Pain HPI - General Chief Complaint: Abdominal Pain Stated Complaint: Abdominal pain Time Seen by Provider: 09/29/20 12:23 Source: patient Mode of arrival: ambulatory Limitations: no limitations - History of Present Illness Initial Comments: Demario is a 54-year-old male with a history of colitis 2 or 3 years ago recent diagnosis of right-sided inguinal hernia who presents the ER for reevaluation of approximately 1 month of a dull aching left-sided abdominal pain. Patient has been seen twice in the past month, he's been advised to follow-up with a general surgeon and has an appointment for the th. Patient reports that he is able to eat and drink he's having normal bowel movements no diarrhea or constipation, no blood in his stool. He denies any pain with palpation. He states that he just has a dull ache in the left side of his abdomen and wanted to have it reevaluated due to persisting. Patient reports that he is only been seen by nurse practitioners and physician assistance has not been seen by physician so he thought he should be evaluated by a physician for this complaint. Patient denies any acute complaints today. - Related Data Home Medications Medication Instructions Recorded Confirmed No Known Home Medications 12/21/19 12/22/19 Allergies Allergy/AdvReac Type Severity Reaction Status Date / Time No Known Allergies Allergy Verified 09/29/20 12:09 Review of Systems ROS Statement: Those systems with pertinent positive or pertinent negative responses have been documented in the HPI. ROS Other: All systems not noted in ROS Statement are negative. Past Medical History Past Medical History: No Reported History Additional Past Medical History / Comment(s): steroid injection Aug 2017 History of Any Multi-Drug Resistant Organisms: MRSA Date of last positivie culture/infection: 04/09/14 MDRO Source:: Left Leg Past Surgical History: Orthopedic Surgery Additional Past Surgical History / Comment(s): knee procedure,wisdom teeth Past Anesthesia/Blood Transfusion Reactions: No Reported Reaction Past Psychological History: No Psychological Hx Reported Past Alcohol Use History: None Reported Past Drug Use History: None Reported - Past Family History Father Family Medical History: No Reported History General Exam - General Exam Comments Initial Comments: Physical Exam GENERAL: Patient is well-developed and well-nourished. Patient is nontoxic and well-hydrated and is in no distress. HENT: Normocephalic, Atraumatic. EYES: PERRL, EOMI PULMONARY: Unlabored respirations. CARDIOVASCULAR: RRR Warm and well perfused extremities ABDOMEN: Soft nontender non-peritoneal SKIN: No rashes or bruising : All external genitalia Small right inguinal hernia is palpable on exam, hernia is reduced and is only palpable with Valsalva or coughing NEUROLOGIC: Alert and oriented Normal speech Normal gait MUSCULOSKELETAL: Moving all extremities with no apparent injury PSYCHIATRIC: No SI/HI Limitations: no limitations Course Vital Signs 09/29/20 09/29/20 12:05 14:23 Temperature 98.0 F Pulse Rate 84 84 Respiratory 18 18 Rate Blood Pressure 129/82 132/86 O2 Sat by Pulse 97 99 Oximetry Medical Decision Making - Medical Decision Making Patient was seen and evaluated history is obtained from the patient and review of medical record Computed tomography scan from last week was reviewed with no acute findings Labs were repeated today as they could not see the outpatient labs, patient was advised he had a low white blood cell count and low platelets during previous labs Repeat labs again have a white count of 1.9 low platelets she was advised to follow with his primary care physician about this Patient doesn't seem to have any acute complaints he has a nonsurgical abdomen. I advised him to follow with primary care and general surgery as planned. Patient is comfortable with plan for discharge home and outpatient follow-up - Lab Data Result diagrams: 09/29/20 12:46 09/29/20 12:46 Lab Results 09/29/20 09/29/20 09/29/20 Range/Units 12:46 12:46 12:51 WBC 1.9 L (3.8-10.6) k/uL RBC 4.38 (4.30-5.90) m/uL Hgb 13.8 (13.0-17.5) gm/dL Hct 40.0 (39.0-53.0) % MCV 91.3 (80.0-100.0) fL MCH 31.6 (25.0-35.0) pg MCHC 34.5 (31.0-37.0) g/dL RDW 12.7 (11.5-15.5) % Plt Count 111 L (150-450) k/uL MPV 7.4 Neutrophils % (Manual) 45 % Band Neuts % (Manual) 1 % Lymphocytes % (Manual) 30 % Monocytes % (Manual) 23 % Eosinophils % (Manual) 1 % Neutrophils # (Manual) 0.80 L (1.3-7.7) k/uL Lymphocytes # (Manual) 0.57 L (1.0-4.8) k/uL Monocytes # (Manual) 0.44 (0-1.0) k/uL Eosinophils # (Manual) 0.02 (0-0.7) k/uL Nucleated RBCs 0 (0-0) /100 WBC Manual Slide Review Performed Reactive Lymphocytes Present RBC Morphology Normal Sodium 137 (137-145) mmol/L Potassium 3.9 (3.5-5.1) mmol/L Chloride 102 (98-107) mmol/L Carbon Dioxide 26 (22-30) mmol/L Anion Gap 9 mmol/L BUN 14 (9-20) mg/dL Creatinine 1.02 (0.66-1.25) mg/dL Est GFR (CKD-EPI)AfAm >90 (>60 ml/min/1.73 sqM) Est GFR (CKD-EPI)NonAf 83 (>60 ml/min/1.73 sqM) Glucose 117 H (74-99) mg/dL Calcium 8.8 (8.4-10.2) mg/dL Total Bilirubin 0.5 (0.2-1.3) mg/dL AST 28 (17-59) U/L ALT 31 (4-49) U/L Alkaline Phosphatase 83 (38-126) U/L Total Protein 6.4 (6.3-8.2) g/dL Albumin 3.7 (3.5-5.0) g/dL Lipase 51 (23-300) U/L Urine Color Yellow Urine Appearance Clear (Clear) Urine pH 6.5 (5.0-8.0) Ur Specific [place] 1.030 (1.001-1.035) Urine Protein 1+ H (Negative) Urine Glucose (UA) Negative (Negative) Urine Ketones Negative (Negative) Urine Blood Negative (Negative) Urine Nitrite Negative (Negative) Urine Bilirubin Negative (Negative) Urine Urobilinogen <2.0 (<2.0) mg/dL Ur Leukocyte Esterase Negative (Negative) Urine RBC 2 (0-5) /hpf Urine WBC 1 (0-5) /hpf Urine Bacteria Rare H (None) /hpf Urine Mucus Few H (None) /hpf Disposition Clinical Impression: Abdominal pain Disposition: HOME SELF-CARE Condition: Stable Instructions (If sedation given, give patient instructions): Abdominal Pain (ED) Additional Instructions: Follow up with Dr Jackson regarding the low white blood count and low platelets. Follow up with Dr Durbin regarding the hernia Is patient prescribed a controlled substance at d/c from ED?: No Referrals: Luis Jackson MD [Primary Care Provider] - 1-2 days
[2020-09-29 13:01] LABS: ALT 31 U/L (4-49); AST 28 U/L (17-59); African American GFR (CKD) >90 (>60 ml/min/1.73 sqM); Albumin 3.7 g/dL (3.5-5.0); Alkaline Phosphatase 83 U/L (38-126); Anion Gap 9 mmol/L; Blood Urea Nitrogen 14 mg/dL (9-20); Calcium 8.8 mg/dL (8.4-10.2); Carbon Dioxide 26 mmol/L (22-30); Chloride 102 mmol/L (98-107); Glucose 117 mg/dL (74-99); Lipase 51 U/L (23-300); Non-African American GFR(CKD) 83 (>60 ml/min/1.73 sqM); Potassium 3.9 mmol/L (3.5-5.1); Sodium 137 mmol/L (137-145); Total Bilirubin 0.5 mg/dL (0.2-1.3); Total Protein 6.4 g/dL (6.3-8.2)
[2020-09-29 13:01] LABS: Appearance,Urine Clear (Clear); Bacteria,Urine Rare /hpf; Bilirubin,Urine Negative (Negative); Blood,Urine Negative (Negative); Color,Urine Yellow; Glucose,Urine (UA) Negative (Negative); Ketones,Urine Negative (Negative); Leukocyte Esterase,Urine Negative (Negative); Mucus,Urine Few /hpf; Nitrite,Urine Negative (Negative); PH, Urine 6.5 (5.0-8.0); Protein,Urine 1+ (Negative); RBC,Urine 2 /hpf (0-5); Urobilinogen,Urine <2.0 mg/dL (<2.0); WBC,Urine 1 /hpf (0-5)
--- NOTE | 2020-09-29 13:18 | XR ---
KUB HISTORY: Abdominal pain Frontal KUB and [address] scan 09/24/2020 Lung bases are clear. There is no pathologic calcification evident. No obstruction or pneumoperitoneu m. IMPRESSION: Nonspecific bowel gas pattern.
[2020-09-29 13:20] LABS: HGB 13.8 gm/dL (13.0-17.5); MCH 31.6 pg (25.0-35.0); MCHC 34.5 g/dL (31.0-37.0); MCV 91.3 fL (80.0-100.0); Mean Platelet Volume 7.4; Platelet Count 111 k/uL (150-450); RBC 4.38 m/uL (4.30-5.90); RDW 12.7 % (11.5-15.5); WBC 1.9 k/uL (3.8-10.6)
[2020-09-29 13:43] LABS: Band Neutrophils % 1 %; Eosinophils # (M) 0.02 k/uL (0-0.7); Lymphocytes # (M) 0.57 k/uL (1.0-4.8); Monocytes # (M) 0.44 k/uL (0-1.0); Neutrophils % (M) 45 %; Nucleated Red Blood Cells 0 /100 WBC (0-0); Total Cells Counted 100
[2020-09-29 13:46] LABS: Reactive Lymphocytes Present
[2020-09-29 14:23] VITALS: BP 132/86
== END 2020-09-29 14:24 | disposition home or self-care (01) ==
LOC: EC 11:51
DX: R10.30 Lower abdominal pain, unspecified (principal); D69.6 Thrombocytopenia, unspecified; K40.90 Unilateral inguinal hernia, without obstruction or gangrene, not specified as recurrent; Z86.14 Personal history of Methicillin resistant Staphylococcus aureus infection; Z87.19 Personal history of other diseases of the digestive system
CPT/HCPCS: 36415; 74018; 80053; 81001; 83690; 85025; 99284

== ENCOUNTER 2020-11-01 23:00 | Emergency (ER) | payer MEDICAID ==
[2020-11-01 23:17] VITALS: BP 136/95; PULSE 78; RESP 20; TEMP 98
[2020-11-02 02:59] LABS: Basophils % (A) 0 %; Eosinophils # (A) 0.1 k/uL (0-0.7); Eosinophils % (A) 3 %; HCT 38.9 % (39.0-53.0); HGB 13.8 gm/dL (13.0-17.5); Lymphocytes # (A) 1.3 k/uL (1.0-4.8); Lymphocytes % (A) 27 %; MCH 32.2 pg (25.0-35.0); MCHC 35.5 g/dL (31.0-37.0); MCV 90.8 fL (80.0-100.0); Monocytes # (A) 0.4 k/uL (0-1.0); Monocytes % (A) 8 %; Neutrophils # (A) 2.9 k/uL (1.3-7.7); Neutrophils % (A) 60 %; Platelet Count 154 k/uL (150-450); RBC 4.28 m/uL (4.30-5.90); RDW 12.3 % (11.5-15.5); WBC 4.9 k/uL (3.8-10.6)
[2020-11-02 03:09] LABS: ALT 18 U/L (4-49); AST 19 U/L (17-59); African American GFR (CKD) >90 (>60 ml/min/1.73 sqM); Albumin 3.9 g/dL (3.5-5.0); Alkaline Phosphatase 96 U/L (38-126); Anion Gap 8 mmol/L; Blood Urea Nitrogen 16 mg/dL (9-20); Calcium 8.9 mg/dL (8.4-10.2); Carbon Dioxide 25 mmol/L (22-30); Chloride 104 mmol/L (98-107); Glucose 108 mg/dL (74-99); Lipase 41 U/L (23-300); Non-African American GFR(CKD) >90 (>60 ml/min/1.73 sqM); Potassium 3.7 mmol/L (3.5-5.1); Sodium 137 mmol/L (137-145); Total Bilirubin 0.5 mg/dL (0.2-1.3); Total Protein 6.7 g/dL (6.3-8.2)
--- NOTE | 2020-11-02 03:24 | ED ---
Abdominal Pain HPI - General Chief Complaint: Abdominal Pain Stated Complaint: Right side pain Time Seen by Provider: 11/02/20 01:15 Source: patient Mode of arrival: ambulatory Limitations: no limitations - History of Present Illness Initial Comments: 55-year-old male patient presents to the emergency department today for evaluation of right mid abdominal pain for the last week. Patient was diagnosed with a right inguinal hernia one month ago. States that he reduce the hernia several times per day. States that the pain in his abdomen presents when he stands up and gets worse as the day goes on. States when he lies down and relaxes it improves. Denies any constipation or diarrhea. He is having normal bowel movements. Passing gas. Denies any nausea or vomiting. Eating and drinking without difficulty. Denies any fever or chills. He does have surgery scheduled for the inguinal hernia with Dr. Durbin on 11/15/2020. - Related Data Home Medications Medication Instructions Recorded Confirmed No Known Home Medications 12/21/19 12/22/19 Allergies Allergy/AdvReac Type Severity Reaction Status Date / Time No Known Allergies Allergy Verified 11/01/20 23:17 Review of Systems ROS Statement: Those systems with pertinent positive or pertinent negative responses have been documented in the HPI. ROS Other: All systems not noted in ROS Statement are negative. Past Medical History Past Medical History: No Reported History Additional Past Medical History / Comment(s): steroid injection Aug 2017 History of Any Multi-Drug Resistant Organisms: MRSA Date of last positivie culture/infection: 04/09/14 MDRO Source:: Left Leg Past Surgical History: Orthopedic Surgery Additional Past Surgical History / Comment(s): knee procedure,wisdom teeth Past Anesthesia/Blood Transfusion Reactions: No Reported Reaction Past Psychological History: No Psychological Hx Reported Smoking Status: Never smoker Past Alcohol Use History: None Reported Past Drug Use History: None Reported - Past Family History Father Family Medical History: No Reported History General Exam Limitations: no limitations General appearance: alert, in no apparent distress, other (Physical well-develo ped, well-nourished adult male patient in no acute distress. Vital signs upon presentation are temperature 98.2F, pulse 78, respirations 20, blood pressure 136/95, pulse ox 99% on room air.) Eye exam: Present: normal appearance, PERRL, EOMI. Absent: scleral icterus, conjunctival injection, periorbital swelling ENT exam: Present: normal exam, normal oropharynx, mucous membranes moist Respiratory exam: Present: normal lung sounds bilaterally. Absent: respiratory distress, wheezes, rales, rhonchi, stridor Cardiovascular Exam: Present: regular rate, normal rhythm, normal heart sounds. Absent: systolic murmur, diastolic murmur, rubs, gallop, clicks GI/Abdominal exam: Present: soft, normal bowel sounds. Absent: distended, tenderness, guarding, rebound, rigid Neurological exam: Present: alert, oriented X3, CN II-XII intact Psychiatric exam: Present: normal affect, normal mood Skin exam: Present: warm, dry, intact, normal color. Absent: rash Course Vital Signs 11/01/20 23:08 Temperature 98.0 F Pulse Rate 78 Respiratory 20 Rate Blood Pressure 136/95 O2 Sat by Pulse 99 Oximetry Medical Decision Making - Medical Decision Making 55-year-old male patient presents to the emergency department today for evaluation of right mid abdominal pain. Has a known right inguinal hernia. Physical examination did reveal soft nontender abdomen. Inguinal hernia is reduced at this time. Vital signs within normal ranges. Labs reviewed, white blood cell count is within normal range, lactic acid is normal. I did discuss findings results with him. He will be discharged follow-up with Dr. Ridley his primary care physician as soon as possible. Return parameters were discu ssed in detail. He verbalizes understanding and agrees with this plan. Case discussed with my attending Dr. Newton. - Lab Data Result diagrams: 11/02/20 02:22 11/02/20 02:22 Lab Results 11/02/20 11/02/20 11/02/20 Range/Units 02:22 02:22 02:22 WBC 4.9 (3.8-10.6) k/uL RBC 4.28 L (4.30-5.90) m/uL Hgb 13.8 (13.0-17.5) gm/dL Hct 38.9 L (39.0-53.0) % MCV 90.8 (80.0-100.0) fL MCH 32.2 (25.0-35.0) pg MCHC 35.5 (31.0-37.0) g/dL RDW 12.3 (11.5-15.5) % Plt Count 154 (150-450) k/uL MPV 7.0 Neutrophils % 60 % Lymphocytes % 27 % Monocytes % 8 % Eosinophils % 3 % Basophils % 0 % Neutrophils # 2.9 (1.3-7.7) k/uL Lymphocytes # 1.3 (1.0-4.8) k/uL Monocytes # 0.4 (0-1.0) k/uL Eosinophils # 0.1 (0-0.7) k/uL Basophils # 0.0 (0-0.2) k/uL Sodium 137 (137-145) mmol/L Potassium 3.7 (3.5-5.1) mmol/L Chloride 104 (98-107) mmol/L Carbon Dioxide 25 (22-30) mmol/L Anion Gap 8 mmol/L BUN 16 (9-20) mg/dL Creatinine 0.88 (0.66-1.25) mg/dL Est GFR (CKD-EPI)AfAm >90 (>60 ml/min/1.73 sqM) Est GFR (CKD-EPI)NonAf >90 (>60 ml/min/1.73 sqM) Glucose 108 H (74-99) mg/dL Plasma Lactic Acid Juanjo 0.8 (0.7-2.0) mmol/L Calcium 8.9 (8.4-10.2) mg/dL Total Bilirubin 0.5 (0.2-1.3) mg/dL AST 19 (17-59) U/L ALT 18 (4-49) U/L Alkaline Phosphatase 96 (38-126) U/L Total Protein 6.7 (6.3-8.2) g/dL Albumin 3.9 (3.5-5.0) g/dL Lipase 41 (23-300) U/L Disposition Clinical Impression: Abdominal pain Disposition: HOME SELF-CARE Condition: Good Instructions (If sedation given, give patient instructions): Abdominal Pain (ED) Additional Instructions: Call Dr. Ridley's office first thing Wednesday morning. Return to the emergency department for any new, worsening, or concerning symptoms. Is patient prescribed a controlled substance at d/c from ED?: No Referrals: Luis Jackson MD [Primary Care Provider] - 1-2 days Time of Disposition: 03:24
== END 2020-11-02 03:32 | disposition home or self-care (01) ==
LOC: EC 23:00
DX: K40.90 Unilateral inguinal hernia, without obstruction or gangrene, not specified as recurrent (principal)
CPT/HCPCS: 36415; 80053; 83605; 83690; 85025; 99284

== ENCOUNTER → 2020-11-06 | Outpatient (CLI) | payer MEDICAID ==
--- NOTE | 2020-11-06 12:19 | US ---
EXAMINATION TYPE: US abdomen limited DATE OF EXAM: 11/06/2020 COMPARISON: CT 09/24/20 CLINICAL HISTORY: K43.9 Ventral hernia without obstruction or gangre. Patient has pinpoint pain in RL Q x 10 days. Area of pain scanned with and without valsalva. Abdominal wall within normal limits. No hernia seen. IMPRESSION: 1. Right lower quadrant ultrasound is unremarkable. Anterior abdominal wall appears normal.
== END | disposition home or self-care (01) ==
LOC: RADUSWWP 06:55
PROVIDERS: ATTEND Family Medicine
DX: K43.9 Ventral hernia without obstruction or gangrene (principal)
CPT/HCPCS: 76705

== ENCOUNTER 2020-11-15 05:59 | Day surgery (SDC) | payer MEDICAID ==
[2020-11-12 16:08] VITALS: BMI 27.3
[~2020-11-15 05:59] MED LIST changes: +ACETAMINOPHEN TAB 500 MG TAB PO PRN; +DEXAMETHASONE SOD PHOSPHATE 4 MG/ML 1 ML VIAL IV ONE; +GABAPENTIN 300 MG CAP PO PRN; +HEPARIN SODIUM,PORCINE/PF 5,000 UNIT/0.5 ML SYRINGE SQ PRN; +MELOXICAM 7.5 MG TAB PO PRN; +MIDAZOLAM 2 MG/2 ML VIAL IV PRN; +ONDANSETRON 4 MG/2 ML VIAL IVP ONE; +SCOPOLAMINE 1.5MG/72HR PATCH TRANSDERM ONE; +TAMSULOSIN 0.4 MG CAP.ER.24H PO PRN
--- NOTE | 2020-11-15 05:59 | P.GSHP ---
History of Present Illness H&P Date: 11/15/20 CHIEF COMPLAINT: Inguinal hernia, right. HISTORY OF PRESENT ILLNESS: The patient is a 75-year-old male who presents with a history of swelling and pain along the right groin. He has noted increased swelling including pain of the area. Now he presents for repair of his inguinal hernia. PAST MEDICAL HISTORY: Please see list. PAST SURGICAL HISTORY: Please see list. MEDICATIONS: Please see list. ALLERGIES: Please see list. SOCIAL HISTORY: No illicit drug use FAMILY HISTORY: No reports of Crohn disease or ulcerative colitis. REVIEW OF ORGAN SYSTEMS: CONSTITUTIONAL: No reports of fevers or chills. No reports of weight loss despite prior attempts. GI: Denies any blood in stools or constipation. PHYSICAL EXAM: VITAL SIGNS: Stable GENERAL: Well-developed pleasant in no acute distress. HEENT: No scleral icterus. Extraocular movements grossly intact. Moist buccal mucosa. NECK: Supple without lymphadenopathy. CHEST: Unlabored respirations. Equal bilateral excursions. CARDIOVASCULAR: Regular rate and rhythm. Distal 2+ pulses. ABDOMEN: Soft, nondistended. No peritoneal signs. Moderate tenderness right lower quadrant MUSCULOSKELETAL: No clubbing, cyanosis, or edema. ASSESSMENT: 1. Inguinal hernia, right initial and symptomatic. PLAN: 1. Recommend proceeding robotic inguinal repair with mesh with possible bilateral approach. 2. Benefits and risks of surgical intervention was discussed including possibility of open technique. 3. DVT prophylaxis. 4. Antibiotic prophylaxis. Past Medical History Past Medical History: No Reported History Additional Past Medical History / Comment(s): rt inguinal hernia,received both covid vaccines History of Any Multi-Drug Resistant Organisms: MRSA Date of last positivie culture/infection: 04/09/14 MDRO Source:: Left Leg Past Surgical History: Orthopedic Surgery Additional Past Surgical History / Comment(s): rupesh knee procedure,wisdom teeth,left inguinal hernia repair as an infant Past Anesthesia/Blood Transfusion Reactions: No Reported Reaction Additional Past Anesthesia/Blood Transfusion Reaction / Comment(s): no hx blood transfusion Smoking Status: Never smoker - Past Family History Father Family Medical History: No Reported History Medications and Allergies Home Medications Medication Instructions Recorded Confirmed Type Cyanocobalamin (Vitamin B-12) 1,000 mcg PO DAILY 11/12/20 11/12/20 History [Vitamin B-12] Allergies Allergy/AdvReac Type Severity Reaction Status Date / Time No Known Allergies Allergy Verified 11/12/20 16:03
[2020-11-15] MEDS ORDERED: MIDAZOLAM 2 MG/2 ML VIAL IV ONE (06:56)
[2020-11-15] MEDS ORDERED: fentaNYL (PF) 50 MCG/ML 2 ML AMP IV ONE (06:56)
[2020-11-15] MEDS ORDERED: HYDROmorphone 0.5 MG/0.5 ML SYRINGE IVP PRN (07:00)
[2020-11-15] MEDS ORDERED: GLYCOPYRROLATE 0.2 MG/ML 2 ML VIAL ONE (07:28)
[2020-11-15] MEDS ORDERED: LIDOCAINE 1% INJ 10MG/ML (20 ML MDV) ONE (07:28)
[2020-11-15] MEDS ORDERED: fentaNYL (PF) 50 MCG/ML 2 ML AMP ONE (07:28)
[2020-11-15] MEDS ORDERED: NEOSTIGMINE 1 MG/ML 10 ML VIAL ONE (07:28)
[2020-11-15] MEDS ORDERED: PROPOFOL 10 MG/ML 20 ML VIAL IV ONE (07:28)
[2020-11-15] MEDS ORDERED: ROPIVACAINE 5 MG/ML 30 ML VIAL ONE (07:28)
[2020-11-15] MEDS ORDERED: KETOROLAC 15 MG/ML 1 ML VIAL ONE (07:28)
[2020-11-15] MEDS ORDERED: ROCURONIUM 10 MG/ML (5 ML VIAL) IV ONE (07:28)
[2020-11-15] MEDS ORDERED: LIDOCAINE 1%-EPI 1:100,000 20 ML VIAL SQ ONE (07:33)
[2020-11-15 09:09] VITALS: TEMP 98.6
[2020-11-15 09:32] VITALS: RESP 16
[2020-11-15 10:04] VITALS: BP 117/71; PULSE 61
[2020-11-15] MEDS ORDERED: LACTATED RINGERS 1,000 ML IV ONE (10:23)
--- NOTE | 2020-11-15 12:16 | P.OP ---
Date of Procedure: 11/15/20 Description of Procedure: SURGEON: PATRICIA DURBIN MD PREOPERATIVE DIAGNOSES: 1. Recurrent right inguinal hernia, symptomatic 2. Previous left inguinal hernia repair POSTOPERATIVE DIAGNOSES: 1. Right obturator inguinal hernia 2. Previous left inguinal hernia 3. Left pelvic adhesions OPERATION: 1. Robotic-assisted [place] laparoscopic repair of recurrent right inguinal hernia with mesh, 11.[address] 2. Excision of right inguinal lipoma, 4 cm ANESTHESIA: General, regional with local anesthetic ESTIMATED BLOOD LOSS: 5 mL. SPECIMENS REMOVED: Right inguinal hernia lipoma COMPLICATIONS: None. FINDINGS: 1. Reducible right inguinal/obturator hernia, 3 cm, with excision of inguinal lipoma 2. Recurrent right indirect inguinal hernia, 2 cm 3. Pantaloon type right inguinal hernia 4. Non-absorbable 2-0 VLOC used INDICATIONS: The patient is a 55-year-old gentleman who presents with history of right groin pain. He has past history bilateral inguinal hernia repairs. Now presents for definitive surgical intervention. Laparoscopic versus open and robotic approaches were discussed. Benefits and risks including bleeding, infection, injury to the vas deferens as well as sterility and chronic groin pain were reviewed. Placement of mesh was also described. Informed consent was obtained. DESCRIPTION: In the preoperative area, the patient was marked with indelible marker along the inguinal hernia. The patient was brought to the operating room and initially laid in supine position. The abdomen had been prepped and draped in standard sterile fashion. [place] draping was also placed. Prior to incision, a timeout protocol was confirmed with surgical team regarding patient's name including procedures to be performed and location along the right groin. Second-generation cephalosporin, Ancef 2 g was given. Heparin 5000 units were given including bilateral SCDs. Initial positioning for the robotic assisted ports were selected whereby 20 cm superior to the target anatomy, 0 degree 5 mm laparoscopic trocar entry was performed at the left upper quadrant. The abdomen was insufflated to 15 mmHg which he had tolerated well. Diagnostic laparoscopy demonstrated omental abdominal wall adhesions on the left groin obscuring the left inguinal canal. An obturator hernia of the right groin was identified with the defect lateral superior to the bladder. Additional indirect inguinal hernia along the right groin was found. Next, along the epigastrium, 8 mm robot trocar was placed. An 8-mm robotic trocar was placed under direct visualization at the right upper quadrant. An 8 mm port was placed at the left upper quadrant. All trocars were positioned between 8 to 10-cm apart from each other. The [employer] XI robot was primed, draped, prepared for docking along the right side of the patient. The patient was placed in Trendelenberg position 14-degrees. I then went to the [employer] Xi console. The web production assistant was at bedside for exchange of the robot arms and equipment. The right obturator hernia was explored where a 4 cm inguinal lipoma was excised. Additionally, a right inguinal hernia sac was evaginated whereby the peritoneum was scored using Endo scissors with cautery. A concurrent right inguinal hernia and obturator hernia was found consistent with pantaloon type hernia. The size of the hernia defect was 3 cm along the obturator and 2-cm along the indirect with intraoperative films obtained. Using a 2-0 nonabsorbable VLOC, the peritoneal defect of the right inguinal and obturator hernias were closed using a pursestring suture. The defect was found to be completely closed. As an onlay, an 11.[address] mesh by [employer] was initially cut in half and entered into the abdominal cavity via the 8 mm trocar. The mesh was tacked to the pelvis using nonabsorbable 2-0 VLOC 9-inch length sutures. The robot was undocked from the patient's bedside. I then rescrubbed into the case. Insufflation was released from the abdominal cavity and all instruments were removed from the abdominal cavity. The rest of incisions were reapproximated using 4-0 Monocryl in a running subcuticular fashion. Local anesthetic was placed along the incision including for a right groin block. Incisions were cleansed using dilute hydrogen peroxide. Liquid glue was applied to the skin. At the end of the procedure, the needle, sponge and instrument counts had been verified correct by the surgical assist. The patient had tolerated the procedure well and was taken to the postanesthesia care unit in stable condition. Plan - Discharge Summary Discharge Rx Participant: No New Discharge Prescriptions: New Tamsulosin [Flomax] 0.4 mg PO DAILY #7 cap Acetaminophen Tab [Tylenol Tab] 1,000 mg PO Q6HR PRN #30 tablet PRN Reason: Pain Ibuprofen [Motrin] 600 mg PO Q8HR PRN #30 tab PRN Reason: Pain Continue Cyanocobalamin (Vitamin B-12) [Vitamin B-12] 1,000 mcg PO DAILY Discharge Medication List Cyanocobalamin (Vitamin B-12) [Vitamin B-12] 1,000 mcg PO DAILY 11/12/20 [History] Acetaminophen Tab [Tylenol Tab] 1,000 mg PO Q6HR PRN #30 tablet 11/15/20 [Rx] Ibuprofen [Motrin] 600 mg PO Q8HR PRN #30 tab 11/15/20 [Rx] Tamsulosin [Flomax] 0.4 mg PO DAILY #7 cap 11/15/20 [Rx] Follow up Appointment(s)/Referral(s): Patricia Durbin MD [STAFF PHYSICIAN] - 11/19/20 4:00 pm Patient Instructions/Handouts: *[facility] - Managing Your Pain After Surgery Without Opioids, *[facility] - (Anesthesia) Discharge Instructions Outpatient Surgery, Laparoscopic Herniorrhaphy (DC), Inguinal Hernia Repair (DC) Activity/Diet/Wound Care/Special Instructions: Using antibacterial soap. No lifting over 10 pounds 2 weeks, November 29 May shower. No bathtub soaks for 2 weeks, November 29 Use ice along incisions for today to prevent swelling. Discharge Disposition: HOME SELF-CARE
--- NOTE | 2020-11-15 12:42 | P.ANPRN ---
Procedure Note - Anesthesia - Nerve Block Performed Bilateral Erector Spinae Single Time Out Performed: Yes (655) Date of Procedure: 11/15/20 Procedure Start Time: 06:56 Procedure Stop Time: 07:02 Location of Patient: PreOp Indication: Acute Post-Operative Pain, Requested by Surgeon Specifically requested for management of pain by : Patricia Durbin Sedation Type: Sedate with meaningful contact maintained Preparation: Sterile Prep Position: Prone Catheter: None Needle Types: Pajunk Ultrasound used to visualize needle placement: No Ultrasound used to observe medication spread: No Injectate: 0.5% Ropivacaine (see comment for volume) (15cc + 15 cc NACL each side) Blood Aspirated: No Pain Paresthesia on Injection Noted: No Resistance on Injection: Normal Image Stored and Saved: Yes Events: Uneventful and Well Tolerated
== END 2020-11-15 10:36 | disposition home or self-care (01) ==
LOC: OR 05:59
PROVIDERS: ATTEND Surgery Plastic and Reconstructive Surgery
DX: K40.91 Unilateral inguinal hernia, without obstruction or gangrene, recurrent (principal); K66.0 Peritoneal adhesions (postprocedural) (postinfection); D17.1 Benign lipomatous neoplasm of skin and subcutaneous tissue of trunk
CPT/HCPCS: 11404; 49651; S2900; 64999; 88304

== ENCOUNTER 2021-10-08 16:31 | Emergency (ER) | payer BC, MEDICAID ==
[2021-10-08 16:58] VITALS: RESP 18; TEMP 98.5
--- NOTE | 2021-10-08 19:56 | ED ---
General Adult HPI - General Chief complaint: GI Bleed Stated complaint: GI bleed Time Seen by Provider: 10/08/21 19:15 Source: patient, RN notes reviewed Mode of arrival: ambulatory Limitations: no limitations - History of Present Illness Initial comments: Patient is a pleasant 56-year-old male presenting to the emergency Department with complaints of rectal bleeding. Onset of symptoms was for 5 days ago. Patient has had several episodes, patient has had some normal stools. A padilla has had some stools mixed with blood, bright red. Patient is also had some stools streaked with blood. No black stools. No nausea vomiting. Patient has mild unsettled feeling in his stomach however not painful. - Related Data Home Medications Medication Instructions Recorded Confirmed No Known Home Medications 10/08/21 10/08/21 Allergies Allergy/AdvReac Type Severity Reaction Status Date / Time No Known Allergies Allergy Verified 10/08/21 20:19 Review of Systems ROS Statement: Those systems with pertinent positive or pertinent negative responses have been documented in the HPI. ROS Other: All systems not noted in ROS Statement are negative. Constitutional: Denies: fever Eyes: Denies: eye pain ENT: Denies: ear pain Respiratory: Denies: cough, dyspnea Cardiovascular: Denies: chest pain Endocrine: Denies: fatigue Gastrointestinal: Reports: as per HPI Genitourinary: Denies: dysuria Musculoskeletal: Denies: back pain Skin: Denies: rash Neurological: Denies: weakness Past Medical History Past Medical History: No Reported History Additional Past Medical History / Comment(s): steroid injection Aug 2017 History of Any Multi-Drug Resistant Organisms: MRSA Date of last positivie culture/infection: 04/09/14 MDRO Source:: Left Leg Past Surgical History: Orthopedic Surgery Additional Past Surgical History / Comment(s): knee procedure,wisdom teeth Past Anesthesia/Blood Transfusion Reactions: No Reported Reaction Past Psychological History: No Psychological Hx Reported Smoking Status: Never smoker Past Alcohol Use History: None Reported Past Drug Use History: None Reported - Past Family History Father Family Medical History: No Reported History General Exam Limitations: no limitations General appearance: alert, in no apparent distress Head exam: Present: normocephalic Eye exam: Present: normal appearance Neck exam: Present: normal inspection Respiratory exam: Present: normal lung sounds bilaterally Cardiovascular Exam: Present: regular rate, normal rhythm GI/Abdominal exam: Present: soft. Absent: distended, tenderness, guarding, rebound, rigid, pulsatile mass Rectal exam: Present: normal inspection (No stool in the rectal vault) Extremities exam: Present: normal inspection Neurological exam: Present: alert Psychiatric exam: Present: normal affect, normal mood Skin exam: Present: normal color Course Vital Signs 10/08/21 16:56 Temperature 98.5 F Pulse Rate 91 Respiratory 18 Rate Blood Pressure 146/85 O2 Sat by Pulse 98 Oximetry Medical Decision Making - Medical Decision Making Patient reevaluated and resting comfortably in bed. Patient updated on results. Patient states would like to go home and is agreeable to follow-up and outpatient colonoscopy. - Lab Data Result diagrams: 10/08/21 20:09 10/08/21 20:09 Lab Results 10/08/21 10/08/21 10/08/21 Range/Units 20:09 20:09 20:09 WBC 5.5 (3.8-10.6) k/uL RBC 4.63 (4.30-5.90) m/uL Hgb 14.9 (13.0-17.5) gm/dL Hct 43.3 (39.0-53.0) % MCV 93.7 (80.0-100.0) fL MCH 32.1 (25.0-35.0) pg MCHC 34.3 (31.0-37.0) g/dL RDW 12.8 (11.5-15.5) % Plt Count 191 (150-450) k/uL MPV 7.5 Neutrophils % 63 % Lymphocytes % 27 % Monocytes % 5 % Eosinophils % 3 % Basophils % 0 % Neutrophils # 3.4 (1.3-7.7) k/uL Lymphocytes # 1.5 (1.0-4.8) k/uL Monocytes # 0.3 (0-1.0) k/uL Eosinophils # 0.2 (0-0.7) k/uL Basophils # 0.0 (0-0.2) k/uL PT 10.5 (9.0-12.0) sec INR 1.0 (<1.2) APTT 23.8 (22.0-30.0) sec Sodium 138 (137-145) mmol/L Potassium 3.9 (3.5-5.1) mmol/L Chloride 104 (98-107) mmol/L Carbon Dioxide 26 (22-30) mmol/L Anion Gap 8 mmol/L BUN 16 (9-20) mg/dL Creatinine 0.94 (0.66-1.25) mg/dL Est GFR (CKD-EPI)AfAm >90 (>60 ml/min/1.73 sqM) Est GFR (CKD-EPI)NonAf >90 (>60 ml/min/1.73 sqM) Glucose 105 H (74-99) mg/dL Calcium 8.9 (8.4-10.2) mg/dL Total Bilirubin 0.6 (0.2-1.3) mg/dL AST 22 (17-59) U/L ALT 19 (4-49) U/L Alkaline Phosphatase 107 (38-126) U/L Total Protein 7.6 (6.3-8.2) g/dL Albumin 4.5 (3.5-5.0) g/dL - Radiology Data Radiology results: report reviewed (Computed tomography scan of abdomen and pelvis with angiogram shows negative exam. No evidence of active GI bleed.) Disposition Clinical Impression: Rectal bleeding Disposition: HOME SELF-CARE Condition: Stable Instructions (If sedation given, give patient instructions): Gastrointestinal Bleeding (ED) Additional Instructions: Please do follow-up with primary care physician as well as gastrology in the next or 2 for recheck. You will need colonoscopy done in the near future. Return for increased bleeding, shortness of breath, weakness or fatigue, worsening symptoms or other concerns. Is patient prescribed a controlled substance at d/c from ED?: No Referrals: Luis Jackson MD [Primary Care Provider] - 1-2 days Ghazala Chou MD [STAFF PHYSICIAN] - 1-2 days Time of Disposition: 21:59
[2021-10-08 20:16] LABS: Basophils % (A) 0 %; Eosinophils # (A) 0.2 k/uL (0-0.7); Eosinophils % (A) 3 %; HCT 43.3 % (39.0-53.0); HGB 14.9 gm/dL (13.0-17.5); Lymphocytes # (A) 1.5 k/uL (1.0-4.8); Lymphocytes % (A) 27 %; MCH 32.1 pg (25.0-35.0); MCHC 34.3 g/dL (31.0-37.0); MCV 93.7 fL (80.0-100.0); Mean Platelet Volume 7.5; Monocytes # (A) 0.3 k/uL (0-1.0); Monocytes % (A) 5 %; Neutrophils # (A) 3.4 k/uL (1.3-7.7); Neutrophils % (A) 63 %; Platelet Count 191 k/uL (150-450); RBC 4.63 m/uL (4.30-5.90); RDW 12.8 % (11.5-15.5); WBC 5.5 k/uL (3.8-10.6)
[2021-10-08 20:23] LABS: Partial Thromboplastin Time 23.8 sec (22.0-30.0); Prothrombin Time 10.5 sec (9.0-12.0)
[2021-10-08 20:24] LABS: ALT 19 U/L (4-49); AST 22 U/L (17-59); African American GFR (CKD) >90 (>60 ml/min/1.73 sqM); Albumin 4.5 g/dL (3.5-5.0); Alkaline Phosphatase 107 U/L (38-126); Anion Gap 8 mmol/L; Blood Urea Nitrogen 16 mg/dL (9-20); Calcium 8.9 mg/dL (8.4-10.2); Carbon Dioxide 26 mmol/L (22-30); Chloride 104 mmol/L (98-107); Glucose 105 mg/dL (74-99); Non-African American GFR(CKD) >90 (>60 ml/min/1.73 sqM); Potassium 3.9 mmol/L (3.5-5.1); Sodium 138 mmol/L (137-145); Total Bilirubin 0.6 mg/dL (0.2-1.3); Total Protein 7.6 g/dL (6.3-8.2)
--- NOTE | 2021-10-08 21:05 | CT ---
EXAMINATION TYPE: CT angio abdomen pelvis DATE OF EXAM: 10/08/2021 COMPARISON: None HISTORY: Possible GI bleed, blood in stool. Abdominal pain. CT DLP: 1900.6 mGycm Automated exposure control for dose reduction was used. CONTRAST: Performed with IV Contrast, patient injected with 100 mL of Isovue 300. Images obtained from the diaphragm to the floor the pelvis without and then subsequently with IV cont rast Isovue 100 mL. There are 3-D post processed images. There are delayed images. There is arterial flow in the abdominal aorta and the celiac artery and superior mesenteric artery. T here is arterial flow in both renal arteries. There is arterial flow in the iliac and femoral arterie s. No evidence of aneurysm or dissection. Appendix appears normal. There is no mesenteric edema. Ther e is no ascites or free air. No contrast extravasation seen to suggest active bleeding. There is arterial flow in the inferior mesenteric artery which appears normal. There are multiple small hepatic cysts. Spleen is intact. Stomach and pancreas are intact. The bile d ucts are not dilated. Gallbladder appears normal. Kidneys show satisfactory contrast opacification. N o evidence of renal ischemia. There is no mesenteric edema. There is no ascites or free air. There ar e a few sigmoid diverticula. No diverticulitis. IMPRESSION: Negative exam. No evidence of active GI bleeding. Normal appendix. There is some mild Diverticulosis without diverticulitis.
[2021-10-08 22:11] VITALS: BP 142/74; PULSE 90
== END 2021-10-08 22:11 | disposition home or self-care (01) ==
LOC: EC 16:31
DX: K62.5 Hemorrhage of anus and rectum (principal)
CPT/HCPCS: 36415; 80053; 85025; 85610; 85730; 74174; 99284; Q9967

== ENCOUNTER 2021-10-11 04:04 | Emergency (ER) | payer BC ==
[2021-10-11 04:25] VITALS: TEMP 97.6
[2021-10-11] MEDS ORDERED: SODIUM CHLORIDE 0.9% 1,000 ML IV STA (04:45)
--- NOTE | 2021-10-11 04:46 | ED ---
Abdominal Pain HPI <Morteza Saucedo - Last Filed: 10/11/21 08:19> - General Source: patient, RN notes reviewed, old records reviewed Mode of arrival: ambulatory Limitations: no limitations - History of Present Illness MD Complaint: abdominal pain -: days(s) Location: diffuse Radiation: epigastric, suprapubic Migration to: no migration Severity: mild Severity scale (1-10): 3 Quality: cramping, aching Worsens With: nothing Treatments Prior to Arrival: other <Kaz Hein - Last Filed: 10/11/21 23:34> - General Chief Complaint: Abdominal Pain Stated Complaint: Abd Pain Time Seen by Provider: 10/11/21 04:36 - History of Present Illness Initial Comments: This is a 56-year-old male to the emergency department for evaluation she presents today for evaluation regards to abdominal pain. Right lower quadrant abdominal pain flank pain. Scrotal pain. Still having some scrotal pain here in the ER. Patient has no nausea vomiting no fevers. Patient was in the ER 2 days ago at that time complaining of blood in his stool. Patient states he didn't have significant problems (Kaz Hein) - Related Data Home Medications Medication Instructions Recorded Confirmed No Known Home Medications 10/08/21 10/08/21 Allergies Allergy/AdvReac Type Severity Reaction Status Date / Time No Known Allergies Allergy Verified 10/11/21 04:25 Review of Systems ROS Other: All systems not noted in ROS Statement are negative. <Morteza Saucedo - Last Filed: 10/11/21 08:19> ROS Other: All systems not noted in ROS Statement are negative. <Kaz Hein - Last Filed: 10/11/21 23:34> ROS Statement: Those systems with pertinent positive or pertinent negative responses have been documented in the HPI. Past Medical History Past Medical History: No Reported History Additional Past Medical History / Comment(s): steroid injection Aug 2017 History of Any Multi-Drug Resistant Organisms: MRSA Date of last positivie culture/infection: 04/09/14 MDRO Source:: Left Leg Past Surgical History: Hernia Repair, Orthopedic Surgery Additional Past Surgical History / Comment(s): knee procedure,wisdom teeth, inguinal hernia repair november 2020 Past Anesthesia/Blood Transfusion Reactions: No Reported Reaction Past Psychological History: No Psychological Hx Reported Smoking Status: Never smoker Past Alcohol Use History: None Reported Past Drug Use History: None Reported - Past Family History Father Family Medical History: No Reported History <Kaz Hein - Last Filed: 10/11/21 23:34> General Exam Limitations: no limitations General appearance: alert, in no apparent distress Head exam: Present: atraumatic, normocephalic, normal inspection Eye exam: Present: normal appearance, PERRL, EOMI. Absent: scleral icterus, conjunctival injection, periorbital swelling ENT exam: Present: normal exam, mucous membranes moist Neck exam: Present: normal inspection. Absent: tenderness, meningismus, lymphadenopathy Respiratory exam: Present: normal lung sounds bilaterally. Absent: respiratory distress, wheezes, rales, rhonchi, stridor Cardiovascular Exam: Present: regular rate, normal rhythm, normal heart sounds. Absent: systolic murmur, diastolic murmur, rubs, gallop, clicks GI/Abdominal exam: Present: soft, normal bowel sounds. Absent: distended, tenderness, guarding, rebound, rigid Extremities exam: Present: normal inspection, full ROM, normal capillary refill. Absent: tenderness, pedal edema, joint swelling, calf tenderness Back exam: Present: normal inspection Neurological exam: Present: alert, oriented X3, CN II-XII intact Psychiatric exam: Present: normal affect, normal mood Skin exam: Present: warm, dry, intact, normal color. Absent: rash <Kaz Hein - Last Filed: 10/11/21 23:34> Course Vital Signs 10/11/21 10/11/21 04:19 09:03 Temperature 97.6 F Pulse Rate 72 77 Respiratory 18 17 Rate Blood Pressure 145/81 118/84 O2 Sat by Pulse 99 97 Oximetry Medical Decision Making - Lab Data Result diagrams: 10/11/21 05:09 10/11/21 05:09 <Morteza Saucedo - Last Filed: 10/11/21 08:19> - Lab Data Result diagrams: 10/11/21 05:09 10/11/21 05:09 - Radiology Data Radiology results: report reviewed (X-ray KUB and ultrasound of groin and scrotum are negative for acute disease), image reviewed <Kaz Hein - Last Filed: 10/11/21 23:34> - Medical Decision Making 56-year-old male who presented with groin pain and swelling. Patient had previous history of hernia repair. He noted some bulging in his groin. He was seen in the emergency department for the last week with some rectal bleeding which has resolved. He is scheduled for colonoscopy about 3 weeks. He has an appointment with his primary care physician on Wednesday which is 2 days from now. Had normal CBC, normal CMP. He received an ultrasound of both the scrotum and groin which did not show hernia. There was several lymph nodes identified. He's had 2 bowel movements while in the emergency department. CT from several days ago was reviewed, there was no hernia present on CT imaging. Patient reassured. He will follow-up with his primary care physician. (Morteza Saucedo) - Lab Data Lab Results 10/11/21 10/11/21 Range/Units 05:09 05:09 WBC 3.7 L (3.8-10.6) k/uL RBC 4.53 (4.30-5.90) m/uL Hgb 14.6 (13.0-17.5) gm/dL Hct 42.4 (39.0-53.0) % MCV 93.5 (80.0-100.0) fL MCH 32.2 (25.0-35.0) pg MCHC 34.5 (31.0-37.0) g/dL RDW 12.8 (11.5-15.5) % Plt Count 179 (150-450) k/uL MPV 7.0 Neutrophils % 59 % Lymphocytes % 27 % Monocytes % 7 % Eosinophils % 4 % Basophils % 0 % Neutrophils # 2.2 (1.3-7.7) k/uL Lymphocytes # 1.0 (1.0-4.8) k/uL Monocytes # 0.3 (0-1.0) k/uL Eosinophils # 0.2 (0-0.7) k/uL Basophils # 0.0 (0-0.2) k/uL Sodium 139 (137-145) mmol/L Potassium 3.5 (3.5-5.1) mmol/L Chloride 108 H (98-107) mmol/L Carbon Dioxide 23 (22-30) mmol/L Anion Gap 8 mmol/L BUN 19 (9-20) mg/dL Creatinine 0.94 (0.66-1.25) mg/dL Est GFR (CKD-EPI)AfAm >90 (>60 ml/min/1.73 sqM) Est GFR (CKD-EPI)NonAf >90 (>60 ml/min/1.73 sqM) Glucose 112 H (74-99) mg/dL Calcium 8.5 (8.4-10.2) mg/dL Total Bilirubin 0.6 (0.2-1.3) mg/dL AST 21 (17-59) U/L ALT 17 (4-49) U/L Alkaline Phosphatase 87 (38-126) U/L Total Protein 6.8 (6.3-8.2) g/dL Albumin 4.0 (3.5-5.0) g/dL Amylase 48 (30-110) U/L Lipase 34 (23-300) U/L Disposition Is patient prescribed a controlled substance at d/c from ED?: No Time of Disposition: 08:21 <Morteza Saucedo - Last Filed: 10/11/21 08:19> <Kaz Hein - Last Filed: 10/11/21 23:34> Clinical Impression: Abdominal pain Disposition: HOME SELF-CARE Condition: Good Instructions (If sedation given, give patient instructions): Abdominal Pain (ED) Referrals: Luis Jackson MD [Primary Care Provider] - 1-2 days Ghazala Chou MD [STAFF PHYSICIAN] - 1-2 days Patricia Durbin MD [STAFF PHYSICIAN] - 1-2 days
--- NOTE | 2021-10-11 05:23 | XR ---
EXAMINATION TYPE: XR KUB DATE OF EXAM: 10/11/2021 COMPARISON: 09/29/2020 HISTORY: Abdominal pain TECHNIQUE: FINDINGS: 2 views upright were obtained and show no sign of intestinal obstruction or pneumoperitoneu m. Fecal pattern is normal. No evidence of a mass. Lung bases are clear. There are no pathologic calc ifications. IMPRESSION: Nonacute abdomen. No change.
[2021-10-11 05:25] LABS: Basophils % (A) 0 %; Eosinophils # (A) 0.2 k/uL (0-0.7); Eosinophils % (A) 4 %; HCT 42.4 % (39.0-53.0); HGB 14.6 gm/dL (13.0-17.5); Lymphocytes % (A) 27 %; MCH 32.2 pg (25.0-35.0); MCHC 34.5 g/dL (31.0-37.0); MCV 93.5 fL (80.0-100.0); Monocytes # (A) 0.3 k/uL (0-1.0); Monocytes % (A) 7 %; Neutrophils # (A) 2.2 k/uL (1.3-7.7); Neutrophils % (A) 59 %; Platelet Count 179 k/uL (150-450); RBC 4.53 m/uL (4.30-5.90); RDW 12.8 % (11.5-15.5); WBC 3.7 k/uL (3.8-10.6)
[2021-10-11 05:53] LABS: ALT 17 U/L (4-49); AST 21 U/L (17-59); African American GFR (CKD) >90 (>60 ml/min/1.73 sqM); Alkaline Phosphatase 87 U/L (38-126); Amylase 48 U/L (30-110); Anion Gap 8 mmol/L; Blood Urea Nitrogen 19 mg/dL (9-20); Calcium 8.5 mg/dL (8.4-10.2); Carbon Dioxide 23 mmol/L (22-30); Chloride 108 mmol/L (98-107); Glucose 112 mg/dL (74-99); Lipase 34 U/L (23-300); Non-African American GFR(CKD) >90 (>60 ml/min/1.73 sqM); Potassium 3.5 mmol/L (3.5-5.1); Sodium 139 mmol/L (137-145); Total Bilirubin 0.6 mg/dL (0.2-1.3); Total Protein 6.8 g/dL (6.3-8.2)
--- NOTE | 2021-10-11 07:57 | US ---
EXAMINATION TYPE: US scrotum with doppler. Grayscale and color Doppler Duplex imaging performed of t ney scrotum. DATE OF EXAM: 10/11/2021 COMPARISON: NONE CLINICAL HISTORY: pain. Pain right-sided EXAM MEASUREMENTS: TESTICLES: Right Testicle: .9 x 2.2 x 3.3 cm Left Testicle: 4.3 x 2.3 x 3.2 cm EPIDIDYMIS HEAD: Right Epididymis: .7 x .6 x 1.0 cm Left Epididymis: 1.3 x .9 x 1.0 cm Doppler performed to assess for testicular vascularity; good bilateral color flow and waveforms are s een. Presence of hydroceles: no Presence of varicoceles: no Testicles symmetric and normal in size. No concerning focal intratesticular mass. Satisfactory blood flow bilaterally. No concerning scrotal fluid collection or hydroceles. Comparison view show symmetri c blood flow to bilateral testicles. IMPRESSION: No suspicious increased or decreased blood flow to right testicle.
--- NOTE | 2021-10-11 07:58 | US ---
EXAMINATION TYPE: US groin RT DATE OF EXAM: 10/11/2021 COMPARISON: CT abdomen and pelvis 3 days ago CLINICAL HISTORY: hernia. Right groin lump. Scanned area of concern. Three hypoechoic areas seen suggestive of lymph nodes largest measuring 1.8 x .5 x .8 cm. Technologist dumas 3 small benign-appearing subcentimeter lymph nodes which correlate with recent CT in the right groin. No suspicious solid or cystic mass or abnormal fluid collection. No focal bowel containing hernia defect on images saved. IMPRESSION: As above.
[2021-10-11 09:05] VITALS: BP 118/84; PULSE 77; RESP 17
== END 2021-10-11 09:08 | disposition home or self-care (01) ==
LOC: EC 04:04
DX: R10.31 Right lower quadrant pain (principal)
CPT/HCPCS: 74018; 76870; 80053; 82150; 83690; 85025; 93975; 99284

== ENCOUNTER → 2022-05-13 | Outpatient (CLI) | payer BC ==
--- NOTE | 2022-05-13 12:13 | CA ---
Stress Echo Report Demario Lyons Age: 56 Gender: M : 1965 Exam Date: 05/13/2022 10:27 Exam Location: [facility] Ht (in): 68 Wt (lb): 178 Ordering Physician: Luis Jackson MD Referring Physician: Renetta HOLCOMB Microbiology Lab Manager: Carrie Garcia RDCS Technologist Procedure CPT: Indication: R07.89 other chest pain ICD-9 Codes: Rhythm: Patient History: Cardiac Medications: Medications in past 24 hours: Contrast: N/A Stress Results Protocol: Chidi Total dose(mL): Exercise Duration (min:sec): Max ST Depression (mm): Angina Score: Jeffery Score: METS: 12.3 Resting HR: 79 Resting BP: 129 / 82 Peak HR: 155 Peak BP: 197 / 84 Max Predicted HR: 163 95 % Max Predicted HR Target HR: 139 Double Product: [id number] Stress Summary: No Symptoms. BP Response: Reason for Termination: Cardiac Symptoms: ECG Analysis Resting ECG: Stress ECG: Arrhythmia: Echo Analysis Resting Echo: Peak Echo Analysis: MEASUREMENTS (Male/Female) Normal Values CONCLUSIONS Patient underwent exercise stress echo with a Chidi protocol treadmill stress test. Patient exercised into Stage 4 for a total of 12 minutes and 38 seconds reaching a total of 12.3 METS. Patient's maximum heart rate was 155 which represented 95% age-predicted maximum heart rate. Stress EKG portion: At baseline patient's EKG showed normal sinus rhythm, normal axis, no significant ST or T wave abnormalities. At peak exercise, EKG showed no significant change from baseline. Stress echo portion: 2-D echocardiogram was performed in the parasternal long, personal short, apical 2 and apical four-chamber views at rest, peak exercise and in recovery. At baseline, echocardiogram showed left ventricular ejection fraction 55 % without wall motion abnormalities. With peak exercise, echocardiogram shows improvement in left ventricular ejection fraction, increase contractility, decrease in left ventricular end systolic dimension without wall motion abnormalities consistent with a normal response to exercise. Conclusions: 1. Normal EKG and echo response to exercise without evidence of inducible ischemia. 2. Excellent exercise capacity. Dr. Mikey Nascimento DO (Electronically Signed) Final Date: 13 May 2022 12:12
--- NOTE | 2022-05-13 12:13 | CA ---
Stress Echo Report Demario Lyons Age: 56 Gender: M : 1965 Exam Date: 05/13/2022 10:27 Exam Location: [facility] Ht (in): 68 Wt (lb): 178 Ordering Physician: Luis Jackson MD Referring Physician: Renetta HOLCOMB Manufacturing Development Engineer: Carrie Garcia RDCS Technologist Procedure CPT: Indication: R07.89 other chest pain ICD-9 Codes: Rhythm: Patient History: Cardiac Medications: Medications in past 24 hours: Contrast: N/A Stress Results Protocol: Chidi Total dose(mL): Exercise Duration (min:sec): Max ST Depression (mm): Angina Score: Jeffery Score: METS: 12.3 Resting HR: 79 Resting BP: 129 / 82 Peak HR: 155 Peak BP: 197 / 84 Max Predicted HR: 163 95 % Max Predicted HR Target HR: 139 Double Product: [id number] Stress Summary: No Symptoms. BP Response: Reason for Termination: Cardiac Symptoms: ECG Analysis Resting ECG: Stress ECG: Arrhythmia: Echo Analysis Resting Echo: Peak Echo Analysis: MEASUREMENTS (Male/Female) Normal Values CONCLUSIONS Patient underwent exercise stress echo with a Chidi protocol treadmill stress test. Patient exercised into Stage 4 for a total of 12 minutes and 38 seconds reaching a total of 12.3 METS. Patient's maximum heart rate was 155 which represented 95% age-predicted maximum heart rate. Stress EKG portion: At baseline patient's EKG showed normal sinus rhythm, normal axis, no significant ST or T wave abnormalities. At peak exercise, EKG showed no significant change from baseline. Stress echo portion: 2-D echocardiogram was performed in the parasternal long, personal short, apical 2 and apical four-chamber views at rest, peak exercise and in recovery. At baseline, echocardiogram showed left ventricular ejection fraction 55 % without wall motion abnormalities. With peak exercise, echocardiogram shows improvement in left ventricular ejection fraction, increase contractility, decrease in left ventricular end systolic dimension without wall motion abnormalities consistent with a normal response to exercise. Conclusions: 1. Normal EKG and echo response to exercise without evidence of inducible ischemia. 2. Excellent exercise capacity. Dr. Mikey Nascimento DO (Electronically Signed) Final Date: 13 May 2022 12:12
== END | disposition home or self-care (01) ==
LOC: RADNMMAIN 09:47
PROVIDERS: ATTEND Family Medicine
DX: R07.89 Other chest pain (principal)
CPT/HCPCS: 93351

== ENCOUNTER → 2023-04-15 | Outpatient (CLI) | payer BC ==
--- NOTE | 2023-04-15 12:18 | MR ---
EXAMINATION TYPE: MR brain and iac wo/w con DATE OF EXAM: 04/15/2023 COMPARISON: HISTORY: Ringing in Ears TECHNIQUE: Multiplanar, multisequence images of the brain and brainstem is performed without and with IV contras t, utilizing 8.5ml mL intravenous Gadavist . FINDINGS: Diffusion weighted images demonstrate no evidence of a recent infarct or other diffusion ab normality. There is no extra-axial fluid collection or significant white matter signal abnormality. The ventricular system and cisternal spaces are normal in size and appearance. The brain volume is age appropriate. Midline structures demonstrate normal morphology. The craniocervical junction appears within normal limits. Post contrast images demonstrate no abnormal enhancement. The dural venous sinuses appear pa tent. The visualized sinuses are clear and the globes are intact. At the skull base there is posterior and is sclerosis upon the cervical medullary junction There is no evidence of cerebellopontine angle mass or schwannoma. Changes of chronic. Mild changes of chronic sinusitis. IMPRESSION: 1. No evidence of cerebellopontine angle mass or schwannoma. 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
== END | disposition home or self-care (01) ==
LOC: RADMRIMAIN 09:17
PROVIDERS: ATTEND Family Medicine
DX: H93.13 Tinnitus, bilateral (principal); R42 Dizziness and giddiness
CPT/HCPCS: 70553; A9585